=== PATIENT | female | born 1995 | race Caucasian/White ===

== ENCOUNTER 2017-02-20 20:53 | Emergency (ER) | payer BC, OTHER ==
[2017-02-20 21:10] VITALS: BP 129/87
[2017-02-20] MEDS ORDERED: Acetaminophen 325 MG Tab PO ONE (21:51)
--- NOTE | 2017-02-20 23:05 | EDM.PDOC ---
ED HPI GENERAL MEDICAL PROBLEM - General Chief Complaint: DIRECTOR RELIGIOUS EDUCATION Problem Stated Complaint: 14 WKS PG AND BLEEDING Time Seen by Provider: 02/20/17 22:00 Source of Information: Reports: Patient History Limitations: Reports: No Limitations - History of Present Illness INITIAL COMMENTS - FREE TEXT/NARRATIVE: 21-year-old female presents for evaluation and treatment of vaginal bleeding and pelvic pain and cramping. Patient is approximately 14 weeks . She is a . She has been seeing Dr. Guerin for DIRECTOR RELIGIOUS EDUCATION care. Last visit was about one month ago. She did talk to his RN this afternoon regarding the vaginal bleeding. States this began around 1500 today. She was instructed to come to the ER if the vaginal bleeding became worse. She does have an appointment with him tomorrow. She states that it became heavier for about 4 hours prior to arrival here. She did pass a few clots. She states that since coming to the ER it has lessened. She compares it to a heavy menstrual cycle. She has not been utilizing a pad but has been utilizing toilet tissue and has to change the tissue paper every 20 minutes. Reports current symptoms of vaginal bleeding, mild pelvic pain and cramping, nausea, headache, lightheadedness and dizziness. She denies any dysuria, hematuria, change in urine odor or color, fevers, vomiting or syncopal episodes. Patient reports her blood type is A+. Lower Abdomen Pain Score (Numeric/FACES): 4 - Related Data Allergies Allergy/AdvReac Type Severity Reaction Status Date / Time No Known Allergies Allergy Verified 02/20/17 21:10 Home Meds: Home Meds . [No Known Home Meds] 02/20/17 [History] Past Medical History - Past Health History Medical/Surgical History: Denies Medical/Surgical History Social & Family History - Tobacco Use Smoking Status *Q: Never Smoker - Caffeine Use Caffeine Use: Reports: None - Recreational Drug Use Recreational Drug Use: No ED ROS GENERAL - Review of Systems Review Of Systems: See Below Constitutional: Denies: Fever Cardiovascular: Reports: Lightheadedness GI/Abdominal: Reports: Abdominal Pain (lower), Nausea. Denies: Vomiting : Reports: Pain (mild pelvic pain and cramping), Other (vaginal bleeding, changing tolit tissue every 20 mintues) Neurological: Reports: Dizziness, Headache. Denies: Syncope ED EXAM - Physical Exam Exam: See Below Exam Limited By: No Limitations General Appearance: Alert, WD/WN, No Apparent Distress Respiratory/Chest: No Respiratory Distress, Lungs Clear, Normal Breath Sounds Cardiovascular: Normal Peripheral Pulses, Regular Rate, Rhythm, No Murmur GI/Abdominal: Normal Bowel Sounds, Soft, Non-Tender, Gravid Uterus (Female) Exam: Normal External Exam, Vaginal Bleeding. No: Cervical Dilatation Heart Tones: Present Neurological: Alert, Oriented, Normal Cognition Psychiatric: Normal Affect, Normal Mood Skin Exam: Warm, Dry, Normal Color Course - Vital Signs Last Recorded V/S: Last Vital Signs Temp 36.5 C 02/20/17 21:04 Pulse 91 02/20/17 21:04 Resp 16 02/20/17 21:04 BP 129/87 02/20/17 21:04 Pulse Ox 99 02/20/17 21:04 - Orders/Labs/Meds Orders: Active Orders 24 hr Category Date Time Status OB 1st Tri Sgl 1st Gest [US] Stat Exams 02/20/17 21:51 Ordered Labs: Laboratory Tests 02/20/17 Range/Units 22:10 Urine Color Lt yelllow (Yellow) Urine Appearance Clear (Clear) Urine pH 7.0 (5.0-8.0) Ur Specific [place] 1.015 (1.005-1.030) Urine Protein Negative (Negative) Urine Glucose (UA) Negative (Negative) Urine Ketones Negative (Negative) Urine Occult Blood 2+ H (Negative) Urine Nitrite Negative (Negative) Urine Bilirubin Negative (Negative) Urine Urobilinogen 0.2 (0.2-1.0) Ur Leukocyte Esterase Negative (Negative) Urine RBC 5-10 H (0-5) /hpf Urine WBC 0-5 (0-5) /hpf Ur Epithelial Cells 0-5 (0-5) /hpf Urine Bacteria Few (FEW) /hpf Urine Mucus Few (FEW) /hpf Meds: Medications Discontinued Medications Generic Name Dose Route Start Last Admin Trade Name Freq PRN Reason Stop Dose Admin Acetaminophen 650 mg 02/20/17 21:51 02/20/17 21:57 Tylenol PO 02/20/17 21:52 650 mg NOW ONE Administration - Radiology Interpretation Free Text/Narrative:: Fetus has normal activity with a heart rate of 141 beats per minute. Breech position of fetus. Posterior position seen to the placenta. Placenta is low- lying not unexpected for gestational age. Normal morphology is suggestive for age. Cervical length is 2.5 cm mild shortening/incompetence close followup recommended to ensure maintenance. the right ovary there are several small peripheral follicles noted. There is no free fluid in cul-de-sac. Impression is cervical shortening. CT Results Date: 02/20/17 - Re-Assessments/Exams Free Text/Narrative Re-Assessment/Exam: 02/20/17 23:27 UA shows 2+ blood. I reviewed the UA and Ultrasound results with the patient. I will Have her keep her appointment with OB tomorrow as planned. Discharge instructions this documented. Departure - Departure Time of Disposition: 23:28 Disposition: Home, Self-Care 01 Condition: fair Clinical Impression: Vaginal bleeding during , antepartum, Cervical shortening affecting - Discharge Information Instructions: Vaginal Bleeding During , First Trimester Referrals: John Paul Guerin MD [Primary Care Provider] - Forms: ED Department Discharge Additional Instructions: Continue with your current plan of care. Tylenol as needed for pain. Follow-up with your DIRECTOR RELIGIOUS EDUCATION provider tomorrow as planned. Nothing vaginal until instructed otherwise by ob. No vaginal intercourse, tampoons, etc. Please return to the ER should your symptoms change or worsen. - My Orders Last 24 Hours: My Active Orders 02/20/17 21:51 OB 1st Tri Sgl 1st Gest [US] Stat - Assessment/Plan Last 24 Hours: My Active Orders 02/20/17 21:51 OB 1st Tri Sgl 1st Gest [US] Stat
--- NOTE | 2017-02-21 09:36 | US ---
Limited obstetrical ultrasound: Multiple real-time images were obtained transabdominally. Comparison: Previous study of 12/26/16 is available. Dates: LMP: ? Current ultrasound: [facility] 08/14/17, gestational age 15 weeks 0 days Earlier ultrasound (12/26/16): [facility] 08/19/17, gestational age 14 weeks 2 days presentation: Breech Placenta: Posterior which is low-lying with no findings of placenta previa no abruption is seen Amniotic fluid: Within normal limits Maternal adnexa: Unremarkable Measurements: BPD: 2.89 cm - 15 weeks 2 days Head circumference: 10.25 cm - 14 weeks 6 days Abdominal circumference: 8.94 cm - 15 weeks 1 day Femur length: 1.50 cm - 14 weeks 3 days Estimated weight: 106 g (4 ounces), estimated weight at the 72nd percentile for age Heart rate: 140 bpm Cervical length: 2.54 cm Impression: 1. Single intrauterine fetus currently breech in presentation. Dates as noted above. 2. Low-lying placenta without previa or abruption. 3. Borderline cervical length measurement of 2.5 cm. Repeat study recommended in 6 weeks for anatomic survey. Cervical length can be reevaluated at that time as well as reevaluation of the low-lying placenta. Diagnostic code #3 I agree with preliminary report issued by [employer] (preliminary report dictated on 02/21/17, 12:13 AM Central Time)
== END 2017-02-20 23:35 | disposition home or self-care (01) ==
LOC: JD.ED 20:53
DX: O46.92 Antepartum hemorrhage, unspecified, second trimester (principal); O26.872 Cervical shortening, second trimester; Z3A.14 14 weeks gestation of pregnancy
CPT/HCPCS: 76801; 81001; 99284; A9270; 99283

== ENCOUNTER 2017-07-13 11:39 | Inpatient (IN) | payer BC, OTHER ==
[2017-07-13] MEDS ORDERED: Lactated Ringers 1,000 ML IV SCH (12:15)
[2017-07-13] MEDS ORDERED: Lactated Ringers 1,000 ML ONE (12:20)
[2017-07-13] MEDS ORDERED: Terbutaline 1 MG/ML SDV SUBCUT ONE (12:20)
[2017-07-13] MEDS ORDERED: Terbutaline 1 MG/ML SDV ONE (12:21)
[2017-07-13] MEDS ORDERED: Bupivacaine 0.5% 30 ML SDV ONE (12:42)
[2017-07-13] MEDS ORDERED: Citric Acid/Sodium Citrate Solution 30 ML Cup ONE (12:46)
[2017-07-13] MEDS ORDERED: Metoclopramide 10 MG/2 ML SDV ONE (12:46)
[2017-07-13] MEDS ORDERED: Citric Acid/Sodium Citrate Solution 30 ML Cup PO ONE (12:50)
[2017-07-13] MEDS ORDERED: ceFAZolin 2 GM in Premix Bag 1 BAG IV ONE (12:50)
[2017-07-13] MEDS ORDERED: Sodium Chloride 0.9% 10 ML Syringe FLUSH PRN (12:50)
[2017-07-13] MEDS ORDERED: Metoclopramide 10 MG/2 ML SDV IVPUSH ONE (12:50)
--- NOTE | 2017-07-13 13:02 | PCM.LDHP ---
L&D History of Present Illness - General Date of Service: 07/13/17 Admit Problem/Dx: Patient Status Order with Admit Dx/Problem 07/13/17 12:15 Patient Status [ADT] Routine Admission Diagnosis/Problem Admission Diagnosis/Problem 07/13/17 12:53 34-5/7 week intrauterine , labor with advanced cervical dilation, transverse lie-back up. Source of Information: Patient History Limitations: Reports: No Limitations - History of Present Illness Introduction:: Maria Guadalupe is a 21-year-old 1 para 0 white female who is evaluated in labor and delivery with complaint reports of contractions a started at 0800 hrs. this a.m. No inciting events noted. She is safia every 3 minutes. Her due date is 08/19/2017 places her at 34-5/7 weeks gestational age. She is evaluated with fibronectin and amnio sure along with group B strep at first. Digital exam then shows that she has a bulging bag shearer and cervix is 7-8 cm dilated baby feels like his in a transverse lie which is confirmed with a bedside ultrasound. Of some shows head to the right, back up and small parts down. She is prepped for emergency in section to perform during history 1 para 0. Patient's is dated by 6-2/7 week ultrasound done on 01/23/2017 place her due date at 08/19/2017. This is supported by 3 other ultrasounds. Last menstrual period was 09/27/2016 but was uncertain. Patient menarche at age 16 positive urine test was 01/04/2017. course patient was seen at 6 weeks and 2 days ultrasounds performed at that time she had normal course up to this point. Fundal height growth has been appropriate her weight gain has been from 152.6 pounds up to 190.8 pounds for approximately 38 pound weight gain. Her vital signs have an stable. During the course. She declined genetic testing. [place] posterior impression screens cross 2 on 03/28/2017. She lives in [facility] therefore has increased distance from the hospital. 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 Laboratory testing. She shows blood to be A+. Negative screen. laboratory tests showed hemoglobin 14.1. Platelets are 297,000. She is rubella immune. RPR is nonreactive. Hepatitis B surface and HIV asses were negative. GC and chlamydia assays were negative. Her second trimester testing showed hemoglobin 12.4. Platelets are 288,000. Group B strep screen was not performed until today. Allergies: none other than Kiwi which causes itching Medications: 1. Metronidazole course just finished in late June 2. Likely just when necessary for nausea new para 3. lens daily. 4. Colace when necessary for constipation Past medical history: Polycystic ovarian syndrome Past surgical history unremarkable Family history: One brother alive and well at age 26. Mom alive and well at age 46. Dad is at age 50 from suicide 1 year ago. Maternal grandmother is alive and well except for back problems at age 63. Paternal grandfather is alive and well with heart problems at age 67. Paternal grandmother uncertain of history but she is alive at age 70. Paternal grandfather secondary to heart problems at age 72. Social history: Review of systems patient is single. Significant other is Matt Perez. 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 She does not use any significant amounts of alcohol, drugs or tobacco. Review of systems: Skin: Negative Heart: Negative Breast history: No infectious symptoms or asthma. Breasts: Negative other than Printy changes GI: Negative : Changes associated with Musca skeletal: Negative Neurologic: Negative Physical exam: In general patient well-developed well-nourished anxious female in no acute distress. Last vital signs in clinic showed a blood pressure 11/01/57. Weight was 190.8. heart rate 148. Her initial weight was 152.6 height was 5 feet 5. Body mass index index then was 25. Skin is warm and dry without lesions. HEENT, neck back in a month's Lungs are clear with good breath sounds in all lung jurado. Cardiovascular exam shows regular rate and rhythm without murmurs. Breast exam is deferred at this time had been done at first visit to be normal. Rinses fundal height consistent with dates. Baby is transverse lie with head to the right. Cervix as above. It is 7-8 cm, 90% effaced, bulging bag shearer, anterior, very soft. Extremities/neurological exam grossly within normal aunts. - Related Data Allergies/Adverse Reactions: Allergies Allergy/AdvReac Type Severity Reaction Status Date / Time No Known Allergies Allergy Verified 02/20/17 21:10 Home Medications: Home Meds . [No Known Home Meds] 02/20/17 [History] Past Medical History - Past Health History Medical/Surgical History: Denies Medical/Surgical History Social & Family History - Tobacco Use Smoking Status *Q: Never Smoker - Caffeine Use Caffeine Use: Reports: None - Recreational Drug Use Recreational Drug Use: No H&P Review of Systems - Review of Systems: Review Of Systems: See Below L&D Exam - Exam Exam: See Below - Vital Signs Weight: 87.997 kg - Patient Data Lab Results Last 24 hrs: Laboratory Results - last 24 hr 07/13/17 Range/Units 12:15 Urine Color Yellow (Yellow) Urine Appearance Clear (Clear) Urine pH 7.0 (5.0-8.0) Ur Specific [place] 1.015 (1.005-1.030) Urine Protein Negative (Negative) Urine Glucose (UA) Negative (Negative) Urine Ketones Negative (Negative) Urine Occult Blood Negative (Negative) Urine Nitrite Negative (Negative) Urine Bilirubin Negative (Negative) Urine Urobilinogen 0.2 (0.2-1.0) Ur Leukocyte Esterase 1+ H (Negative) Problem List Initiated/Reviewed/Updated: Yes Orders Last 24hrs: Active Orders 24 hr Category Date Time Status Patient Status [ADT] Routine ADT 07/13/17 12:15 Active Non Stress Test [RC] PER UNIT ROUTINE Care 07/13/17 12:15 Active Vital Signs [RC] PER UNIT ROUTINE Care 07/13/17 12:15 Active AMNISURE RUPTURE MEMBRAN [BF] Stat Lab 07/13/17 12:15 Ordered CBC WITH AUTO DIFF [HEME] Stat Lab 07/13/17 12:45 Ordered FIBRONECTIN Stat Lab 07/13/17 12:41 Received GROUP B STREP BY PCR [MOLEC] Stat Lab 07/13/17 12:41 Received TYPE AND SCREEN [BBK] Stat Lab 07/13/17 12:46 Ordered UA W/MICROSCOPIC [URIN] Stat Lab 07/13/17 12:15 Results Lactated Ringers [Ringers, Lactated] 1,000 ml Med 07/13/17 12:15 Active IV ASDIRECTED Resuscitation Status Routine Resus Stat 07/13/17 12:15 Ordered Medication Orders Lactated Ringer's (Ringers, Lactated) 1,000 mls @ 500 mls/hr IV ASDIRECTED PRISCILLA Last Admin: 10/05/17 12:36 Dose: 500 mls/hr Assessment/Plan Comment:: Assessment: 1. 34-5/7 week intrauterine patency, active labor, advanced cervical dilation, bulging bag shearer with baby in transverse lie with back up and small parts down. 2. Group B strep status is not known but done today 3. Patient plans to nurse Plan: 1. Emergent primary lower uterine segment transverse section to defensive skin incision under regional block. procedure, risks, benefits, alternatives are discussed in detail the patient. She appears to understand, wishes to proceed and consent is signed. Prepped 2. DVT prophylaxis SCDs 3. Infection prophylaxis with Ancef 2 g IV preoperatively. 4. Routine preoperative labs 5. Reglan and Bicitra preoperatively.
[2017-07-13] MEDS ORDERED: Morphine PF 10 MG/10 ML SDV ONE (13:06)
[2017-07-13] MEDS ORDERED: Oxytocin/Lactated Ringers 10 UNIT/1,000 ML BAG IV SCH (13:15)
[2017-07-13] MEDS ORDERED: Oxytocin 10 Units/1 ML SDV ONE (13:44)
[2017-07-13] MEDS ORDERED: Ondansetron 4 MG/2 ML SDV ONE (13:44)
[2017-07-13] MEDS ORDERED: ceFAZolin 1 GM Vial ONE (13:44)
[2017-07-13] MEDS ORDERED: Meperidine PF 50 MG/ML Syringe ONE (13:56)
[2017-07-13] MEDS ORDERED: Ketorolac 30 MG/ML SDV ONE (14:04)
[2017-07-13] MEDS ORDERED: Ondansetron 4 MG/2 ML SDV IVPUSH PRN (14:56)
[2017-07-13] MEDS ORDERED: Meperidine PF 50 MG/ML Syringe IVPUSH PRN (14:56)
[2017-07-13] MEDS ORDERED: fentaNYL 100 MCG/2 ML SDV IVPUSH PRN (14:56)
[2017-07-13] MEDS ORDERED: diphenhydrAMINE 50 MG/ML SDV IVPUSH PRN ×3 (14:56→15:41)
[2017-07-13] MEDS ORDERED: Ondansetron 4 MG/2 ML SDV IV PRN (15:41)
[2017-07-13] MEDS ORDERED: ePHEDrine 50 MG/ML SDV IVPUSH PRN ×2 (15:41)
[2017-07-13] MEDS ORDERED: Lanolin 100% Cream 7 GM Tube TOP PRN ×2 (15:41)
[2017-07-13] MEDS ORDERED: Naloxone 0.4 MG/ML SDV IVPUSH PRN ×2 (15:41)
[2017-07-13] MEDS ORDERED: Dextrose 5%-Lactated Ringers 1,000 ML IV SCH ×2 (15:41)
[2017-07-13] MEDS: Prenatal Multivitamin with Calcium/Folic Acid/Iron Tab PO SCH (16:44)
--- NOTE | 2017-07-13 18:43 | PCM.OPNOTE ---
- General Post-Op/Procedure Note Date of Surgery/Procedure: 07/13/17 Operative Procedure(s): Primary lower uterine segment transverse section through Pfannenstiel skin incision Findings: Baby is in transverse position but descended to a gabriella breech presentation upon entering the uterus. Amniotic fluid was clear. Fallopian tubes, ovaries and uterus were otherwise normal. Pre Op Diagnosis: 34-5/7 weeks intrauterine , active labor, advanced cervical dilation, transverse lie with back up Post-Op Diagnosis: Same with delivery of a viable, jolly, male infant with Apgars of 2 and 9 at 1326 hrs. on 07/13/2017. Weight was 5 lbs. 11 oz. Anesthesia Technique: Spinal Other Anesthesia Type: Marcaine 0.5%-20 mL locally Primary Surgeon: John Paul Guerin Secondary Surgeon: Sekou Bautista Anesthesia Provider: Clark Castro Pathology: Placenta Fluid Replacement, Intraop: 600 Output, Urine Amount: 200 EBL in mLs: 500 Drain/Tube Comments:: Indwelling bladder catheter Complications: None Condition: Good Free Text/Narrative:: Intake & Output 07/13/17 07/13/17 07/13/17 06:59 14:59 22:59 Intake Total 1430 Output Total 700 Balance 730 Surgery duration: 24 minutes Procedure: Patient was transferred the room and placed in a sitting position. Spinal anesthesia was administered. After confirmation of adequate anesthesia patient was placed in a supine position with a wedge under her right side to facilitate left lateral positioning. The patient was prepped and draped in usual fashion after Lowery catheter was placed . The anesthetic was checked and found to be adequate. The Pfannenstiel skin incision was then made carried down to skin subcutaneous and fascial layers. The fascia was then undermined superiorly and inferiorly to allow for adequate operating room the recti muscles midline and preperitoneal fat was bluntly dissected. Peritoneal cavity was entered longitudinally. The vesicouterine peritoneum was then incised transversely and bladder flap was developed. Myometrium was incised transversely to the level of the amniotic sac. This incision was extended bilaterally in a blunt fashion. The amniotic sac was then ruptured resulting clear amniotic fluid. Baby was found to be in a gabriella breech presentation having descended from a transverse position, head on the right, back up. A hand is placed in the low uterine segment and the baby's breech was brought forth through the incision. The baby was completely delivered using fundal pressure and complete breech extraction technique in a routine fashion. The nose and mouth were bulb suctioned. Baby's cord was clamped x2 cut and baby was handed off to attending precision mechanical instrument maker Dr Alegria. Placenta was expressed after cord blood was obtained. Uterus was then exteriorized to allow for easier closure. The cervix was assessed and found to be dilated adequately to allow egress of blood. The uterus was closed in 2 layers. The first layer a running locked suture of 0 Monocryl, the second layer a running locked vertical mattress suture of 0 Monocryl. Eispwa-wh-fssui suture was placed at the left incision to control 1 bleeder. Hemostasis confirmed at this time. Sponge instrument needle counts are correct. The uterus was returned to the abdominal cavity and lateral gutters were cleared of blood. Once again sponge needle counts are correct. The anterior abdominal wall was closed with a #1 PDS suture from angle to angle. The subcutaneous area was found to be free of any bleeders. Skin was closed with a running subcuticular stitch of 3-0 Monocryl in a vertical mattress suture fashion using a Cristian needle. Prineo mesh/glue was then applied to further approximate the incision. It should be noted that patient received 2 g of Ancef preoperatively for infection prophylaxis and had Pitocin infused after delivery of the placenta to facilitate uterine contraction. She also had sequential compression stockings in place for DVT prophylaxis. Patient was discharged from the operating room in satisfactory condition.
[2017-07-13] MEDS: Simethicone 80 MG Tab.Chew PO SCH (18:52)
[2017-07-13] MEDS ORDERED: Ibuprofen 800 MG Tab PO SCH (20:00)
[2017-07-14] MEDS: Ketorolac 30 MG/ML SDV IVPUSH SCH ×2 (00:16→06:37)
[2017-07-14] MEDS: Simethicone 80 MG Tab.Chew PO SCH ×5 (06:38→22:30)
--- NOTE | 2017-07-14 08:05 | PCM48HPAN ---
Post Anesthesia Note - EVALUATION WITHIN 48HRS OF ANESTHETIC Vital Signs in Normal Range: Yes Patient Participated in Evaluation: Yes Respiratory Function Stable: Yes Airway Patent: Yes Cardiovascular Function Stable: Yes Hydration Status Stable: Yes Pain Control Satisfactory: Yes (On pain medications.) Nausea and Vomiting Control Satisfactory: Yes Mental Status Recovered: Yes - COMMENTS/OBSERVATIONS Free Text/Narrative:: Patient was up walking this morning. Denies: headache, back pain, numbness and/ or tingling in lower extremities. No apparent complication noted at this time.
--- NOTE | 2017-07-14 10:14 | PCM.SN ---
- Free Text/Narrative Note: Postoperative day one: Patient is doing very well. Pain is under good control. She has minimal lochia. Incision is dry and intact. Her appetite is good. She is nursing without problems. Patient is afebrile, vital signs stable. Lungs are clear with good breath sounds normal jurado. Cardiovascular exam shows regular rate and rhythm without murmurs. Abdomen is flat, soft, incision appears to be intact, dry and without hematoma, seroma or abscess. Extremities neurologic exam show trace edema otherwise unremarkable. CBC is within normal limits for the first postop day. Assessment: Operative day 1-doing well. Will increase diet, activity and discontinue SCDs when ambulating well. DC IV when tolerating fluids well.
[2017-07-14] MEDS: Ibuprofen 800 MG Tab PO SCH ×2 (12:25→20:47)
[2017-07-14] MEDS: Prenatal Multivitamin with Calcium/Folic Acid/Iron Tab PO SCH (13:05)
[2017-07-14] MEDS: Docusate Sodium 100 MG Cap PO PRN (15:43)
[2017-07-14] MEDS: Acetaminophen/oxyCODONE 325-5 MG Tab PO PRN ×2 (15:44→20:05)
[2017-07-15] MEDS: Acetaminophen/oxyCODONE 325-5 MG Tab PO PRN ×5 (02:19→19:55)
[2017-07-15] MEDS: Docusate Sodium 100 MG Cap PO PRN ×3 (03:47→19:54)
[2017-07-15] MEDS: Ibuprofen 800 MG Tab PO SCH ×3 (03:47→19:54)
--- NOTE | 2017-07-15 07:14 | PCM.PNPP ---
- General Info Date of Service: 07/15/17 Functional Status: Reports: Pain Controlled, Tolerating Diet, Ambulating, Urinating - Review of Systems General: Reports: No Symptoms Pulmonary: Reports: No Symptoms Cardiovascular: Reports: No Symptoms Gastrointestinal: Reports: No Symptoms Genitourinary: Reports: No Symptoms Musculoskeletal: Reports: No Symptoms - Patient Data Vital Signs - Most Recent: Last Vital Signs Temp 36.6 C 07/15/17 03:49 Pulse 78 07/15/17 03:49 Resp 14 07/15/17 03:49 BP 101/55 L 07/15/17 03:49 Pulse Ox 94 L 07/15/17 03:49 Weight - Most Recent: 87.997 kg I&O - Last 24 Hours: Intake & Output 07/14/17 07/15/17 07/15/17 22:59 06:59 14:59 Intake Total 300 1500 Output Total 1150 Balance -850 1500 Lab Results - Last 24 Hours: Laboratory Results - last 24 hr 07/13/17 Range/Units 12:41 Group B Strep (PCR) Negative (NEGATIVE) Med Orders - Current: Current Medications Diphenhydramine HCl (Benadryl) 25 mg IVPUSH Q6H PRN PRN Reason: Itching or Nausea Docusate Sodium (Colace) 100 mg PO Q12H PRN PRN Reason: Constipation Last Admin: 07/15/17 03:47 Dose: 100 mg Emollient Ointment (Lansinoh Hpa) 0 gm TOP ASDIRECTED PRN PRN Reason: Sore Nipples Ephedrine Sulfate (Ephedrine Sulfate) 5 mg IVPUSH SEECOMMENT PRN PRN Reason: Other Ibuprofen (Motrin) 800 mg PO Q8H [facility] Last Admin: 07/15/17 03:47 Dose: 800 mg Naloxone HCl (Narcan) 0.1 mg IVPUSH SEECOMMENT PRN PRN Reason: Respiratory Depression Ondansetron HCl (Zofran) 4 mg IV Q4H PRN PRN Reason: Nausea/Vomiting Last Admin: 07/13/17 16:58 Dose: 4 mg Oxycodone/Acetaminophen (Percocet 325-5 Mg) 2 tab PO Q4H PRN PRN Reason: Pain (moderate 4-6) Last Admin: 07/15/17 07:01 Dose: 1 tab Prenat Multivit/[employer] Specialist/Iron/Folic Ac ( Plus Iron) 1 each PO DAILY [facility] Last Admin: 07/14/17 13:05 Dose: Not Given Simethicone (Simethicone) 80 mg PO PCBED [facility] Last Admin: 07/14/17 22:30 Dose: 80 mg Discontinued Medications Bupivacaine HCl (Marcaine 0.5%) Confirm Administered Dose 30 ml .ROUTE .[facility] ONE Stop: 07/13/17 12:43 Cefazolin Sodium (Ancef) Confirm Administered Dose 2 gm .ROUTE .[facility] ONE Stop: 07/13/17 13:45 Citric Acid/Sodium Citrate (Bicitra Solution) Confirm Administered Dose 30 ml .ROUTE .[facility] ONE Stop: 07/13/17 12:47 Last Admin: 07/13/17 15:33 Dose: Not Given Citric Acid/Sodium Citrate (Bicitra Solution) 30 ml PO ONETIME ONE Stop: 07/13/17 12:51 Last Admin: 07/13/17 12:51 Dose: 30 ml Diphenhydramine HCl (Benadryl) 25 mg IVPUSH Q6H PRN PRN Reason: Pruritis Fentanyl (Sublimaze) 50 mcg IVPUSH Q5M PRN PRN Reason: Pain Lactated Ringer's (Ringers, Lactated) 1,000 mls @ 500 mls/hr IV ASDIRECTED [facility] Last Admin: 07/13/17 12:36 Dose: 500 mls/hr Lactated Ringer's (Ringers, Lactated) Confirm Administered Dose 1,000 mls @ as directed .ROUTE .[facility] ONE Stop: 07/13/17 12:21 Last Admin: 07/13/17 13:15 Dose: Not Given Cefazolin Sodium/Dextrose 2 gm (/ Premix) 50 mls @ 100 mls/hr IV ONETIME ONE Stop: 07/13/17 13:19 Last Admin: 07/13/17 16:51 Dose: Not Given Oxytocin/Lactated Ringer's (Pitocin In Lr 10 Units/1,000 Ml) 10 unit in 1,000 mls @ 500 mls/hr IV TITRATE [facility] Dextrose/Lactated Ringer's (Dextrose 5%-Lactated Ringers) 1,000 mls @ 125 mls/ hr IV ASDIRECTED [facility] Stop: 07/13/17 23:40 Last Admin: 07/13/17 17:00 Dose: 125 mls/hr Ibuprofen (Motrin) 800 mg PO Q8H [facility] Last Admin: 07/14/17 07:24 Dose: Not Given Ketorolac Tromethamine (Toradol) Confirm Administered Dose 30 mg .ROUTE .[facility]- [facility] ONE Stop: 07/13/17 14:05 Ketorolac Tromethamine (Toradol) 30 mg IVPUSH Q6H [facility] Stop: 07/14/17 06:01 Last Admin: 07/14/17 06:37 Dose: 30 mg Meperidine HCl (Demerol) Confirm Administered Dose 50 mg .ROUTE .[facility] ONE Stop: 07/13/17 13:57 Meperidine HCl (Demerol) 12.5 mg IVPUSH ONETIME PRN PRN Reason: Shivering Metoclopramide HCl (Reglan) Confirm Administered Dose 10 mg .ROUTE .[facility] ONE Stop: 07/13/17 12:47 Last Admin: 07/13/17 15:33 Dose: Not Given Metoclopramide HCl (Reglan) 10 mg IVPUSH ONETIME ONE Stop: 07/13/17 12:51 Last Admin: 07/13/17 12:50 Dose: 10 mg Morphine Sulfate (Duramorph Pf) Confirm Administered Dose 10 mg .ROUTE .[facility]K-MED ONE Stop: 07/13/17 13:07 Ondansetron HCl (Zofran) Confirm Administered Dose 4 mg .ROUTE .STK-MED ONE Stop: 07/13/17 13:45 Ondansetron HCl (Zofran) 4 mg IVPUSH ONETIME PRN PRN Reason: Nausea/Vomiting Oxytocin (Pitocin) Confirm Administered Dose 20 unit .ROUTE .STK-MED ONE Stop: 07/13/17 13:45 Sodium Chloride (Saline Flush) 10 ml FLUSH ASDIRECTED PRN PRN Reason: Keep Vein Open Terbutaline Sulfate (Brethine) 0.25 mg SUBCUT ONETIME ONE Stop: 07/13/17 12:21 Last Admin: 07/13/17 12:35 Dose: 0.25 mg Terbutaline Sulfate (Brethine) Confirm Administered Dose 1 mg .ROUTE .STK-MED ONE Stop: 07/13/17 12:22 Last Admin: 07/13/17 15:33 Dose: Not Given - Interaction Disposition, : in Room with Family Interaction: Holding Infant Feeding: Attempted ; Nursed Fair/Poor Support Person: Mother, Significant Other - Recovery Exam Fundal Tone: Firm Fundal Level: 2 Fingerbreadths Below Umbilicus Fundal Placement: Midline Lochia Amount: Scant Lochia Color: Rubra/Red Perineum Description: Intact, Minimal Bruising/Swelling Episiotomy/Laceration: None Bladder Status: Voiding Urinary Elimination: Voided - Exam General: Alert, Oriented, Cooperative Lungs: Clear to Auscultation, Normal Respiratory Effort Cardiovascular: Regular Rate, Regular Rhythm GI/Abdominal Exam: Soft, Non-Tender Extremities: Normal Inspection Skin: Warm, Dry, Intact Wound/Incisions: Healing Well, No Drainage - Problem List & Annotations (1) 34 weeks gestation of SNOMED Code(s): 96490975 Code(s): Z3A.34 - 34 WEEKS GESTATION OF Status: Acute Current Visit: Yes (2) labor SNOMED Code(s): 1047806 Code(s): O60.00 - LABOR WITHOUT DELIVERY, UNSPECIFIED TRIMESTER Status: Acute Current Visit: Yes Qualifiers: labor trimester: third trimester labor delivery status: with delivery in third trimester Fetus number: single or unspecified fetus Qualified Code(s): O60.14X0 - labor third trimester with delivery third trimester, not applicable or unspecified (3) Transverse lie of fetus SNOMED Code(s): 45917087 Code(s): O32.2XX0 - MATERNAL CARE FOR TRANSVERSE AND OBLIQUE LIE, UNSP Status: Acute Current Visit: Yes (4) S/P SNOMED Code(s): 825951660 Code(s): Z98.891 - HISTORY OF UTERINE SCAR FROM PREVIOUS SURGERY Status: Acute Current Visit: Yes - Problem List Review Problem List Initiated/Reviewed/Updated: Yes - Assessment Assessment:: 21 y/o G1 now P0101 POD#2 from PLTCS at 34 5/7 wks after PTL and transverse lie - Plan Plan:: S/p PTLCS * Routine cares * Encourage breast feeding * Discharge home tomorrow
[2017-07-15] MEDS: Prenatal Multivitamin with Calcium/Folic Acid/Iron Tab PO SCH (09:49)
[2017-07-15] MEDS: Simethicone 80 MG Tab.Chew PO SCH ×4 (09:50→23:24)
[2017-07-15] MEDS ORDERED: Magnesium Hydroxide 400 MG/5 ML Susp 30 ML Cup PO PRN (19:44)
[2017-07-16] MEDS: Ibuprofen 800 MG Tab PO SCH ×2 (04:08→11:07)
[2017-07-16] MEDS ORDERED: Bisacodyl 10 MG Supp RECTAL PRN (04:38)
--- NOTE | 2017-07-16 05:37 | PCM.PNPP ---
- General Info Date of Service: 07/16/17 Functional Status: Reports: Pain Controlled, Tolerating Diet, Ambulating, Urinating - Review of Systems General: Reports: No Symptoms Pulmonary: Reports: No Symptoms Cardiovascular: Reports: No Symptoms Gastrointestinal: Reports: Constipation Genitourinary: Reports: No Symptoms Musculoskeletal: Reports: No Symptoms - Patient Data Vital Signs - Most Recent: Last Vital Signs Temp 36.7 C 07/16/17 04:09 Pulse 81 07/16/17 04:09 Resp 14 07/16/17 04:09 BP 101/63 07/16/17 04:09 Pulse Ox 98 07/16/17 04:09 Weight - Most Recent: 87.997 kg I&O - Last 24 Hours: Intake & Output 07/15/17 07/15/17 07/16/17 14:59 22:59 06:59 Intake Total 500 240 Balance 500 240 Med Orders - Current: Current Medications Bisacodyl (Dulcolax) 10 mg RECTAL DAILY PRN PRN Reason: Constipation Diphenhydramine HCl (Benadryl) 25 mg IVPUSH Q6H PRN PRN Reason: Itching or Nausea Docusate Sodium (Colace) 100 mg PO Q12H PRN PRN Reason: Constipation Last Admin: 07/15/17 19:54 Dose: 100 mg Emollient Ointment (Lansinoh Hpa) 0 gm TOP ASDIRECTED PRN PRN Reason: Sore Nipples Last Admin: 07/15/17 17:10 Dose: 1 tube Ephedrine Sulfate (Ephedrine Sulfate) 5 mg IVPUSH SEECOMMENT PRN PRN Reason: Other Ibuprofen (Motrin) 800 mg PO Q8H [facility] Last Admin: 07/16/17 04:08 Dose: 800 mg Magnesium Hydroxide (Milk Of Magnesia) 30 ml PO Q6H PRN PRN Reason: Constipation Last Admin: 07/15/17 19:53 Dose: 30 ml Naloxone HCl (Narcan) 0.1 mg IVPUSH SEECOMMENT PRN PRN Reason: Respiratory Depression Ondansetron HCl (Zofran) 4 mg IV Q4H PRN PRN Reason: Nausea/Vomiting Last Admin: 07/13/17 16:58 Dose: 4 mg Oxycodone/Acetaminophen (Percocet 325-5 Mg) 2 tab PO Q4H PRN PRN Reason: Pain (moderate 4-6) Last Admin: 07/15/17 19:55 Dose: 1 tab Prenat Multivit/[place]/Iron/Folic Ac ( Plus Iron) 1 each PO DAILY [facility] Last Admin: 07/15/17 09:49 Dose: 1 each Simethicone (Simethicone) 80 mg PO PCBED [facility] Last Admin: 07/15/17 23:24 Dose: 80 mg Discontinued Medications Bupivacaine HCl (Marcaine 0.5%) Confirm Administered Dose 30 ml .ROUTE .[facility] ONE Stop: 07/13/17 12:43 Cefazolin Sodium (Ancef) Confirm Administered Dose 2 gm .ROUTE .[facility] ONE Stop: 07/13/17 13:45 Citric Acid/Sodium Citrate (Bicitra Solution) Confirm Administered Dose 30 ml .ROUTE .[facility] ONE Stop: 07/13/17 12:47 Last Admin: 07/13/17 15:33 Dose: Not Given Citric Acid/Sodium Citrate (Bicitra Solution) 30 ml PO ONETIME ONE Stop: 07/13/17 12:51 Last Admin: 07/13/17 12:51 Dose: 30 ml Diphenhydramine HCl (Benadryl) 25 mg IVPUSH Q6H PRN PRN Reason: Pruritis Fentanyl (Sublimaze) 50 mcg IVPUSH Q5M PRN PRN Reason: Pain Lactated Ringer's (Ringers, Lactated) 1,000 mls @ 500 mls/hr IV ASDIRECTED [facility] Last Admin: 07/13/17 12:36 Dose: 500 mls/hr Lactated Ringer's (Ringers, Lactated) Confirm Administered Dose 1,000 mls @ as directed .ROUTE .[facility] ONE Stop: 07/13/17 12:21 Last Admin: 07/13/17 13:15 Dose: Not Given Cefazolin Sodium/Dextrose 2 gm (/ Premix) 50 mls @ 100 mls/hr IV ONETIME ONE Stop: 07/13/17 13:19 Last Admin: 07/13/17 16:51 Dose: Not Given Oxytocin/Lactated Ringer's (Pitocin In Lr 10 Units/1,000 Ml) 10 unit in 1,000 mls @ 500 mls/hr IV TITRATE [facility] Dextrose/Lactated Ringer's (Dextrose 5%-Lactated Ringers) 1,000 mls @ 125 mls/ hr IV ASDIRECTED [facility] Stop: 07/13/17 23:40 Last Admin: 07/13/17 17:00 Dose: 125 mls/hr Ibuprofen (Motrin) 800 mg PO Q8H [facility] Last Admin: 07/14/17 07:24 Dose: Not Given Ketorolac Tromethamine (Toradol) Confirm Administered Dose 30 mg .ROUTE .STK- MED ONE Stop: 07/13/17 14:05 Ketorolac Tromethamine (Toradol) 30 mg IVPUSH Q6H [facility] Stop: 07/14/17 06:01 Last Admin: 07/14/17 06:37 Dose: 30 mg Meperidine HCl (Demerol) Confirm Administered Dose 50 mg .ROUTE .STK-MED ONE Stop: 07/13/17 13:57 Meperidine HCl (Demerol) 12.5 mg IVPUSH ONETIME PRN PRN Reason: Shivering Metoclopramide HCl (Reglan) Confirm Administered Dose 10 mg .ROUTE .STK-MED ONE Stop: 07/13/17 12:47 Last Admin: 07/13/17 15:33 Dose: Not Given Metoclopramide HCl (Reglan) 10 mg IVPUSH ONETIME ONE Stop: 07/13/17 12:51 Last Admin: 07/13/17 12:50 Dose: 10 mg Morphine Sulfate (Duramorph Pf) Confirm Administered Dose 10 mg .ROUTE .STK-MED ONE Stop: 07/13/17 13:07 Ondansetron HCl (Zofran) Confirm Administered Dose 4 mg .ROUTE .STK-MED ONE Stop: 07/13/17 13:45 Ondansetron HCl (Zofran) 4 mg IVPUSH ONETIME PRN PRN Reason: Nausea/Vomiting Oxytocin (Pitocin) Confirm Administered Dose 20 unit .ROUTE .STK-MED ONE Stop: 07/13/17 13:45 Sodium Chloride (Saline Flush) 10 ml FLUSH ASDIRECTED PRN PRN Reason: Keep Vein Open Terbutaline Sulfate (Brethine) 0.25 mg SUBCUT ONETIME ONE Stop: 07/13/17 12:21 Last Admin: 07/13/17 12:35 Dose: 0.25 mg Terbutaline Sulfate (Brethine) Confirm Administered Dose 1 mg .ROUTE .STK-MED ONE Stop: 07/13/17 12:22 Last Admin: 07/13/17 15:33 Dose: Not Given - Interaction Infant Disposition, : [place] in Room with Family Interaction: Holding Feeding: Attempted ; Nursed Fair/Poor Support Person: Mother, Significant Other - Recovery Exam Fundal Tone: Firm Fundal Level: 2 Fingerbreadths Below Umbilicus Fundal Placement: Midline Lochia Amount: Small Lochia Color: Rubra/Red Perineum Description: Intact, Minimal Bruising/Swelling Episiotomy/Laceration: None Bladder Status: Voiding Urinary Elimination: Voided - Exam General: Alert, Oriented, Cooperative Lungs: Clear to Auscultation, Normal Respiratory Effort Cardiovascular: Regular Rate, Regular Rhythm GI/Abdominal Exam: Soft, Non-Tender Extremities: Normal Inspection Skin: Warm, Dry, Intact Wound/Incisions: Healing Well, No Drainage - Problem List & Annotations (1) 34 weeks gestation of SNOMED Code(s): 95268465 Code(s): Z3A.34 - 34 WEEKS GESTATION OF Status: Acute Current Visit: Yes (2) labor SNOMED Code(s): 5777379 Code(s): O60.00 - LABOR WITHOUT DELIVERY, UNSPECIFIED TRIMESTER Status: Acute Current Visit: Yes Qualifiers: labor trimester: third trimester labor delivery status: with delivery in third trimester Fetus number: single or unspecified fetus Qualified Code(s): O60.14X0 - labor third trimester with delivery third trimester, not applicable or unspecified (3) Transverse lie of fetus SNOMED Code(s): 21110738 Code(s): O32.2XX0 - MATERNAL CARE FOR TRANSVERSE AND OBLIQUE LIE, UNSP Status: Acute Current Visit: Yes Qualifiers: Fetus number: single or unspecified fetus Qualified Code(s): O32.2XX0 - Maternal care for transverse and oblique lie, not applicable or unspecified (4) S/P SNOMED Code(s): 265626272 Code(s): Z98.891 - HISTORY OF UTERINE SCAR FROM PREVIOUS SURGERY Status: Acute Current Visit: Yes - Problem List Review Problem List Initiated/Reviewed/Updated: Yes - My Orders Last 24 Hours: My Active Orders 07/15/17 19:44 Magnesium Hydroxide [Milk of Magnesia] 30 ml PO Q6H PRN 07/16/17 04:38 Bisacodyl [Dulcolax] 10 mg RECTAL DAILY PRN 07/16/17 05:36 Ready for Discharge [RC] PER UNIT ROUTINE - Assessment Assessment:: 21 y/o G1 now P0101 POD#3 from PLTCS at 34 5/7 wks after PTL and transverse lie - Plan Plan:: S/p PTLCS * Routine cares * Encourage breast feeding * Discharge home today
--- NOTE | 2017-07-16 05:37 | PCM.DCSUM1 ---
Discharge Summary - Discharge Data Discharge Date: 07/16/17 Discharge Disposition: Home, Self-Care 01 Condition: Good - Discharge Diagnosis/Problem(s) (1) 34 weeks gestation of SNOMED Code(s): 87648162 ICD Code: Z3A.34 - 34 WEEKS GESTATION OF Status: Acute Current Visit: Yes (2) labor SNOMED Code(s): 6679060 ICD Code: O60.00 - LABOR WITHOUT DELIVERY, UNSPECIFIED TRIMESTER Status: Acute Current Visit: Yes Qualifiers: labor trimester: third trimester labor delivery status: with delivery in third trimester Fetus number: single or unspecified fetus Qualified Code(s): O60.14X0 - labor third trimester with delivery third trimester, not applicable or unspecified (3) Transverse lie of fetus SNOMED Code(s): 21009640 ICD Code: O32.2XX0 - MATERNAL CARE FOR TRANSVERSE AND OBLIQUE LIE, UNSP Status: Acute Current Visit: Yes Qualifiers: Fetus number: single or unspecified fetus Qualified Code(s): O32.2XX0 - Maternal care for transverse and oblique lie, not applicable or unspecified (4) S/P SNOMED Code(s): 297337594 ICD Code: Z98.891 - HISTORY OF UTERINE SCAR FROM PREVIOUS SURGERY Status: Acute Current Visit: Yes - Patient Summary/Data Operative Procedure(s) Performed: Primary lower uterine segment transverse section through Pfannenstiel skin incision Complications: None Consults: None Recommended Follow-up Testing/Procedures: Follow up in [address] Guerin [facility] Hospital Course: 21 y/o presented at 34 5/7 wks gestation with contractions and found to be 8 cm and with transverse lie. Taken to OR for urgent PLTCS. See operative note for full details. did well and was discharged home on POD#3 - Patient Instructions Diet: Regular Diet as Tolerated Activity: No Lifting Over 20 Pounds Activity, Other: Pelvic rest for 6 weeks Driving: Do Not Drive (While taking narcotics ) Showering/Bathing: May Shower, No Tub Bathing/Swimming Wound/Incision Care: Keep Operative Site/Wound Site Clean and Dry Notify Provider of: Fever, Increased Pain, Swelling and Redness, Drainage, Nausea and/or Vomiting - Discharge Plan Prescriptions/Med Rec: Acetaminophen/oxyCODONE [Percocet 325-5 MG] 2 tab PO Q4H PRN #20 tablet PRN Reason: Pain Home Medications: Home Meds Acetaminophen/oxyCODONE [Percocet 325-5 MG] 2 tab PO Q4H PRN #20 tablet [Rx] Docusate Sodium [Colace] 100 mg PO Q12H PRN cap 07/15/17 [Rx] Vit with Ca/FA/Iron [ Plus Iron] 1 each PO DAILY tablet [Rx] Referrals: John Paul Guerin MD [Primary Care Provider] - (2 weeks for check ) - Discharge Summary/Plan Comment DC Time >30 min.: No - Patient Data Vitals - Most Recent: Last Vital Signs Temp 36.7 C 07/16/17 04:09 Pulse 81 07/16/17 04:09 Resp 14 07/16/17 04:09 BP 101/63 07/16/17 04:09 Pulse Ox 98 07/16/17 04:09 Weight - Most Recent: 87.997 kg I&O - Last 24 hours: Intake & Output 07/15/17 07/15/17 07/16/17 14:59 22:59 06:59 Intake Total 500 240 Balance 500 240 Med Orders - Current: Current Medications Bisacodyl (Dulcolax) 10 mg RECTAL DAILY PRN PRN Reason: Constipation Diphenhydramine HCl (Benadryl) 25 mg IVPUSH Q6H PRN PRN Reason: Itching or Nausea Docusate Sodium (Colace) 100 mg PO Q12H PRN PRN Reason: Constipation Last Admin: 07/15/17 19:54 Dose: 100 mg Emollient Ointment (Lansinoh Hpa) 0 gm TOP ASDIRECTED PRN PRN Reason: Sore Nipples Last Admin: 07/15/17 17:10 Dose: 1 tube Ephedrine Sulfate (Ephedrine Sulfate) 5 mg IVPUSH SEECOMMENT PRN PRN Reason: Other Ibuprofen (Motrin) 800 mg PO Q8H [facility] Last Admin: 07/16/17 04:08 Dose: 800 mg Magnesium Hydroxide (Milk Of Magnesia) 30 ml PO Q6H PRN PRN Reason: Constipation Last Admin: 07/15/17 19:53 Dose: 30 ml Naloxone HCl (Narcan) 0.1 mg IVPUSH SEECOMMENT PRN PRN Reason: Respiratory Depression Ondansetron HCl (Zofran) 4 mg IV Q4H PRN PRN Reason: Nausea/Vomiting Last Admin: 07/13/17 16:58 Dose: 4 mg Oxycodone/Acetaminophen (Percocet 325-5 Mg) 2 tab PO Q4H PRN PRN Reason: Pain (moderate 4-6) Last Admin: 07/15/17 19:55 Dose: 1 tab Prenat Multivit/[place]/Iron/Folic Ac ( Plus Iron) 1 each PO DAILY [facility] Last Admin: 07/15/17 09:49 Dose: 1 each Simethicone (Simethicone) 80 mg PO PCBED [facility] Last Admin: 07/15/17 23:24 Dose: 80 mg Discontinued Medications Bupivacaine HCl (Marcaine 0.5%) Confirm Administered Dose 30 ml .ROUTE .STK-MED ONE Stop: 07/13/17 12:43 Cefazolin Sodium (Ancef) Confirm Administered Dose 2 gm .ROUTE .STK-MED ONE Stop: 07/13/17 13:45 Citric Acid/Sodium Citrate (Bicitra Solution) Confirm Administered Dose 30 ml .ROUTE .STK-MED ONE Stop: 07/13/17 12:47 Last Admin: 07/13/17 15:33 Dose: Not Given Citric Acid/Sodium Citrate (Bicitra Solution) 30 ml PO ONETIME ONE Stop: 07/13/17 12:51 Last Admin: 07/13/17 12:51 Dose: 30 ml Diphenhydramine HCl (Benadryl) 25 mg IVPUSH Q6H PRN PRN Reason: Pruritis Fentanyl (Sublimaze) 50 mcg IVPUSH Q5M PRN PRN Reason: Pain Lactated Ringer's (Ringers, Lactated) 1,000 mls @ 500 mls/hr IV ASDIRECTED [facility] Last Admin: 07/13/17 12:36 Dose: 500 mls/hr Lactated Ringer's (Ringers, Lactated) Confirm Administered Dose 1,000 mls @ as directed .ROUTE .STK-MED ONE Stop: 07/13/17 12:21 Last Admin: 07/13/17 13:15 Dose: Not Given Cefazolin Sodium/Dextrose 2 gm (/ Premix) 50 mls @ 100 mls/hr IV ONETIME ONE Stop: 07/13/17 13:19 Last Admin: 07/13/17 16:51 Dose: Not Given Oxytocin/Lactated Ringer's (Pitocin In Lr 10 Units/1,000 Ml) 10 unit in 1,000 mls @ 500 mls/hr IV TITRATE [facility] Dextrose/Lactated Ringer's (Dextrose 5%-Lactated Ringers) 1,000 mls @ 125 mls/ hr IV ASDIRECTED [facility] Stop: 07/13/17 23:40 Last Admin: 07/13/17 17:00 Dose: 125 mls/hr Ibuprofen (Motrin) 800 mg PO Q8H [facility] Last Admin: 07/14/17 07:24 Dose: Not Given Ketorolac Tromethamine (Toradol) Confirm Administered Dose 30 mg .ROUTE .STK- MED ONE Stop: 07/13/17 14:05 Ketorolac Tromethamine (Toradol) 30 mg IVPUSH Q6H [facility] Stop: 07/14/17 06:01 Last Admin: 07/14/17 06:37 Dose: 30 mg Meperidine HCl (Demerol) Confirm Administered Dose 50 mg .ROUTE .STK-MED ONE Stop: 07/13/17 13:57 Meperidine HCl (Demerol) 12.5 mg IVPUSH ONETIME PRN PRN Reason: Shivering Metoclopramide HCl (Reglan) Confirm Administered Dose 10 mg .ROUTE .STK-MED ONE Stop: 07/13/17 12:47 Last Admin: 07/13/17 15:33 Dose: Not Given Metoclopramide HCl (Reglan) 10 mg IVPUSH ONETIME ONE Stop: 07/13/17 12:51 Last Admin: 07/13/17 12:50 Dose: 10 mg Morphine Sulfate (Duramorph Pf) Confirm Administered Dose 10 mg .ROUTE .STK-MED ONE Stop: 07/13/17 13:07 Ondansetron HCl (Zofran) Confirm Administered Dose 4 mg .ROUTE .STK-MED ONE Stop: 07/13/17 13:45 Ondansetron HCl (Zofran) 4 mg IVPUSH ONETIME PRN PRN Reason: Nausea/Vomiting Oxytocin (Pitocin) Confirm Administered Dose 20 unit .ROUTE .STK-MED ONE Stop: 07/13/17 13:45 Sodium Chloride (Saline Flush) 10 ml FLUSH ASDIRECTED PRN PRN Reason: Keep Vein Open Terbutaline Sulfate (Brethine) 0.25 mg SUBCUT ONETIME ONE Stop: 07/13/17 12:21 Last Admin: 07/13/17 12:35 Dose: 0.25 mg Terbutaline Sulfate (Brethine) Confirm Administered Dose 1 mg .ROUTE .STK-MED ONE Stop: 07/13/17 12:22 Last Admin: 07/13/17 15:33 Dose: Not Given *Q Meaningful Use (DIS) - VTE *Q VTE Criteria *Q: - Stroke *Q Stroke Criteria *Q: - AMI *Q AMI Criteria *Q:
[2017-07-16] MEDS: Acetaminophen/oxyCODONE 325-5 MG Tab PO PRN ×2 (05:59→15:02)
[2017-07-16] MEDS: Prenatal Multivitamin with Calcium/Folic Acid/Iron Tab PO SCH (11:06)
[2017-07-16] MEDS: Simethicone 80 MG Tab.Chew PO SCH ×2 (11:06→16:54)
== END 2017-07-16 16:30 | disposition home or self-care (01) | DRG 540 ==
LOC: JD.OBCHECK 11:39 → JD.OB 11:40
PROVIDERS: ADMIT Obstetrics & Gynecology; ATTEND Obstetrics & Gynecology
PROC: 10D00Z1 Extraction of Products of Conception, Low, Open Approach (ICD-10-PCS; principal; 2017-07-13)
DX: O60.14X0 Preterm labor third trimester with preterm delivery third trimester, not applicable or unspecified (principal); O32.2XX0 Maternal care for transverse and oblique lie, not applicable or unspecified; Z3A.35 35 weeks gestation of pregnancy; Z37.0 Single live birth
CPT/HCPCS: 01961; 36415; 59025; 81001; 82731; 84112; 85025; 86850; 86900; 86901; 87653; A9270-GY; J0690; J1885; J2175; J2270; J2405; J2590; J2765; J3010; J3105; J7042; J7120

== ENCOUNTER → 2019-09-20 | Day surgery (SDC) | payer BC, OTHER ==
[~2019-09-20] MED LIST: Acetaminophen 325 MG Tab PO ONE; Bupivacaine 0.5% 30 ML SDV ONE; Dexamethasone 4 MG/ML 5 ML MDV ONE; HYDROmorphone 0.5 MG/0.5 ML Syringe IVPUSH PRN; HYDROmorphone 0.5 MG/0.5 ML Syringe ONE; Ketorolac 30 MG/ML SDV ONE; Lactated Ringers 1,000 ML IV SCH; Lactated Ringers 1,000 ML ONE; Lidocaine 1% 6 ML ONE; Lidocaine 1%/Sod Bicarbonate in NS 8.4% 1 ML Syringe IDERM PRN; Midazolam 1 MG/ML 2 ML SDV ONE; Ondansetron 4 MG Tab.DIS PO ONE; Ondansetron 4 MG/2 ML SDV ONE; Propofol 200 MG/20 ML SDV ONE; Rocuronium 50 MG/5 ML Vial ONE; Sodium Chloride 0.9% 10 ML Syringe FLUSH PRN; ceFAZolin 1 GM Vial ONE; fentaNYL 100 MCG/2 ML SDV IVPUSH PRN; fentaNYL 250 MCG/5 ML SDV ONE
--- NOTE | 2019-09-20 07:53 | PCM.PREANE ---
Preanesthetic Assessment - Anesthesia/Transfusion/Family Hx Anesthesia History: Prior Anesthesia Without Reaction Family History of Anesthesia Reaction: No Transfusion History: No Prior Transfusion(s) Type of Transfusion Reactions: Reports: Unknown Intubation History: Unknown - Review of Systems General: No Symptoms Pulmonary: No Symptoms (Former smoker: quit smokinig 6 months ago. (socially smoked prior to)) Cardiovascular: No Symptoms Gastrointestinal: No Symptoms (GERD- treated with tums) Neurological: No Symptoms Other: Reports: Depression, Anxiety - Physical Assessment NPO Status Date: 09/19/19 NPO Status Time: 22:00 Vital Signs: Last Vital Signs Temp 36.3 C 09/20/19 07:15 Pulse 95 09/20/19 07:15 Resp 16 09/20/19 07:15 BP 116/74 09/20/19 07:15 Pulse Ox 99 09/20/19 07:15 Height: 1.65 m Weight: 70.307 kg ASA Class: 2 Mental Status: Alert & Oriented x3 Airway Class: Mallampati = 2 Dentition: Reports: Normal Dentition, Caries Thyro-Mental Finger Breadths: 3 Mouth Opening Finger Breadths: 3 ROM/Head Extension: Full Lungs: Clear to Auscultation, Normal Respiratory Effort Cardiovascular: Regular Rate, Regular Rhythm, No Murmurs - Lab Values: Laboratory Last Values WBC 3.59 K/mm3 (3.98-10.04) L 09/20/19 07:30 RBC 4.62 M/mm3 (3.98-5.22) 09/20/19 07:30 Hgb 14.2 gm/dl (11.2-15.7) 09/20/19 07:30 Hct 40.8 % (34.1-44.9) 09/20/19 07:30 MCV 88.3 fl (79.4-94.8) 09/20/19 07:30 MCH 30.7 pg (25.6-32.2) 09/20/19 07:30 MCHC 34.8 g/dl (32.2-35.5) 09/20/19 07:30 RDW Std Deviation 38.5 fL (36.4-46.3) 09/20/19 07:30 Plt Count 313 K/mm3 (182-369) 09/20/19 07:30 MPV 9.5 fl (9.4-12.3) 09/20/19 07:30 Neut % (Auto) 48.4 % (34.0-71.1) 09/20/19 07:30 Lymph % (Auto) 39.6 % (19.3-51.7) 09/20/19 07:30 [place] % (Auto) 8.4 % (4.7-12.5) 09/20/19 07:30 Eos % (Auto) 2.8 (0.7-5.8) 09/20/19 07:30 Baso % (Auto) 0.8 % (0.1-1.2) 09/20/19 07:30 Neut # (Auto) 1.74 K/mm3 (1.56-6.13) 09/20/19 07:30 Lymph # (Auto) 1.42 K/mm3 (1.18-3.74) 09/20/19 07:30 [place] # (Auto) 0.30 K/mm3 (0.24-0.36) 09/20/19 07:30 Eos # (Auto) 0.10 K/mm3 (0.04-0.36) 09/20/19 07:30 Baso # (Auto) 0.03 K/mm3 (0.01-0.08) 09/20/19 07:30 All labs reviewed and noted and within acceptable ranges to proceed with scheduled procedure. - Imaging/EKG Impressions: EKG: SR rate=80 - Allergies Allergies/Adverse Reactions: Allergies Allergy/AdvReac Type Severity Reaction Status Date / Time kiwi Allergy Cannot Verified 09/19/19 14:44 Remember - Anesthesia Plan Pre-Op Medication Ordered: None - Acknowledgements Anesthesia Type Planned: General Anesthesia Pt an Appropriate Candidate for the Planned Anesthesia: Yes Alternatives and Risks of Anesthesia Discussed w Pt/Guardian: Yes Pt/Guardian Understands and Agrees with Anesthesia Plan: Yes PreAnesthesia Questionnaire - Past Health History Medical/Surgical History: Denies Medical/Surgical History HEENT History: Reports: Impaired Vision, Other (See Below) Other HEENT History: wears glasses, has contacts Cardiovascular History: Reports: Heart Murmur Respiratory History: Reports: None Gastrointestinal History: Reports: Other (See Below) Other Gastrointestinal History: viral gastroenteritis Genitourinary History: Reports: None 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: , Other (See Below) Other OB/BYN History: ovarian cyst, irregular menses, pelvic pain, nipple discharge, short cervix, bacterial vaginosis Musculoskeletal History: Reports: None Neurological History: Reports: None Psychiatric History: Reports: None Endocrine/Metabolic History: Reports: None Hematologic History: Reports: None Immunologic History: Reports: None Oncologic (Cancer) History: Reports: None Dermatologic History: Reports: None - Past Surgical History Head Surgeries/Procedures: Reports: None Cardiovascular Surgical History: Reports: None Respiratory Surgical History: Reports: None GI Surgical History: Reports: Cholecystectomy Female Surgical History: Reports: Section Endocrine Surgical History: Reports: None Neurological Surgical History: Reports: None Musculoskeletal Surgical History: Reports: None Dermatological Surgical History: Reports: None - SUBSTANCE USE Smoking Status *Q: Former Smoker Recreational Drug Use History: No - HOME MEDS Home Medications: Home Meds . [No Known Home Meds] 08/07/18 [History] - CURRENT (IN HOUSE) MEDS Current Meds: Current Medications Lactated Ringer's (Ringers, Lactated) 1,000 mls @ 125 mls/hr IV ASDIRECTED PRISCILLA Stop: 09/20/19 23:00 Lidocaine/Sodium Bicarbonate (Buffered Lidocaine 1% In Ns 8.4%) 0.25 ml IDERM ONETIME PRN PRN Reason: Prior to IV Start Stop: 09/20/19 18:00 Sodium Chloride (Saline Flush) 10 ml FLUSH ASDIRECTED PRN PRN Reason: Keep Vein Open Stop: 09/20/19 18:00 Discontinued Medications Bupivacaine HCl (Marcaine 0.5%) Confirm Administered Dose 30 ml .ROUTE .STK-MED ONE Stop: 09/20/19 07:14
--- NOTE | 2019-09-20 10:13 | PCM.POSTAN ---
POST ANESTHESIA ASSESSMENT - MENTAL STATUS Mental Status: Alert, Oriented - VITAL SIGNS Vital Signs: Last Vital Signs Temp 36.3 C 09/20/19 07:15 Pulse 95 09/20/19 07:15 Resp 16 09/20/19 07:15 BP 116/74 09/20/19 07:15 Pulse Ox 99 09/20/19 07:15 - RESPIRATORY Respiratory Status: Respiratory Rate WNL, Airway Patent, O2 Saturation Stable - CARDIOVASCULAR CV Status: Pulse Rate WNL, Blood Pressure Stable - GASTROINTESTINAL GI Status: No Symptoms - PAIN Pain Score: 0 - POST OP HYDRATION Hydration Status: Adequate & Stable - OBSERVATIONS Free Text/Narrative:: no anesthesia complications noted
--- NOTE | 2019-09-20 10:21 | PCM.OPNOTE ---
- General Post-Op/Procedure Note Date of Surgery/Procedure: 09/20/19 Operative Procedure(s): Diagnostic laparoscopy with lysis of adhesions Pre Op Diagnosis: Right ovarian cyst, pelvic pain Post-Op Diagnosis: Same plus adhesions of omentum to anterior abdominal wall Anesthesia Technique: General ET Tube Primary Surgeon: Jayson Melton Secondary Surgeon: Sekou Bautista Anesthesia Provider: Teo Oliva Housing Management Representative: Corrine Rogel (DUNCAN) Reason Housing Management Representative Was Necessary: Assist in surgery, decrease comorbidity and mortality. Role of Housing Management Representative: Assist in surgery, decrease comorbidity and mortality. Fluid Replacement, Intraop: 1,600 Output, Urine Amount: 0 EBL in mLs: 5 Drain/Tube Comments:: None Complications: None Condition: Good Free Text/Narrative:: Patient was transported to the operating room and medical office building. She had voided just prior to being transported to the operating room. SCDs in place and functioning. Ancef 2 g was given intravenously without complication. Patient had abdominal prep performed draped in a sterile fashion. Timeout performed. The area of the umbilicus where the planned incision for the scope was to be made was injected with 2.5 mL of Marcaine 0.5% without epinephrine. 6 mm vertical incision was made and the pneumoperitoneum was introduced and flow of gas begun. The initial flow gas was to the subcutaneous tissue the varies needle was removed and reinserted and pneumoperitoneum was then obtained without difficulty. The 5 mm self-retaining trocar inserted prompt resolution of the abdominal contents was obtained. Gallbladder had been removed previously. The liver appeared normal. The right ovary had a small cyst left ovary was normal both tubes were normal uterus was normal no evidence of anterior posterior cul-de-sac endometriosis. There were dense adhesions of the omentum to the anterior abdominal wall. Right 5 mm self-retaining trocar introduced after injecting 2.5 mL of Marcaine 0.5% and making a 6 mm incision the trocar was introduced without difficulty. Utilizing the Enseal the adhesions were grasped Enseal activated and incised adhesions were reduced without difficulty. Total estimated blood loss 5 mL. The reinspection of the operative area at the anterior abdominal wall and the omentum showed no bleeding the sponge and needle pack and instrument count correct x2. The right flank trocar was removed and area of insertion inspected no bleeding. The pneumoperitoneum was further reduced and the umbilical trocar removed. Both incisions were closed with 4-0 Monocryl interrupted suture and Dermabond applied. Transported to postanesthesia care unit in satisfactory condition. No blood transfusions required. It was noted at the time of surgery there was a significant amount of hard stool in the bowel. Patient will need to take Colace and other medications to control constipation. Images: 001 shows the right lobe of the liver and absent gallbladder 002 shows a left lobe of the liver dome of the diaphragm normal 003 shows adhesions of the omentum to the anterior abdominal wall just below and to the left of the umbilicus. 004 those additional adhesions of the omentum to the anterior abdominal wall 005 additional view of adhesions of the omentum to the anterior abdominal wall 006 shows beginning of reduction of the adhesions utilizing Enseal crossclamping activated again incising. 007 shows Enseal being harshil applied to the adhesions of the omentum to the anterior abdominal wall for lysis. 008 fundus of the uterus and anterior cul-de-sac with no endometriosis visualized 009 shows the left tube and ovary normal in appearance and the right corner the dome of the uterus. 010 anterior cul-de-sac with no evidence of endometriosis or other lesions 011 shows the fundus of the uterus the colon posteriorly and grasping the right fallopian tube 012 right tube and ovary with a small cyst noted at the inferior portion of the ovary physiologic 013 view of the posterior cul-de-sac and uterosacral ligament on the left side no evidence of endometriosis or other lesions. 014 appendix is seen at approximately 5:00 coursing posterior to the colon 015 tip of the appendix is noted below the colon 016 anterior abdominal wall after lysis of adhesions with some portion of the remaining omentum which is normal 017 anterior abdominal wall with some omentum visualized from where additional adhesions were lysed 018 8 flank peritoneal incision from the trocar no bleeding.
[2019-09-20 10:46] VITALS: PULSE 77
[2019-09-20 12:28] VITALS: BP 127/77
--- NOTE | 2019-09-20 15:01 | PCM48HPAN ---
Post Anesthesia Note - EVALUATION WITHIN 48HRS OF ANESTHETIC Vital Signs in Normal Range: Yes Patient Participated in Evaluation: Yes Respiratory Function Stable: Yes Airway Patent: Yes Cardiovascular Function Stable: Yes Hydration Status Stable: Yes Pain Control Satisfactory: Yes Nausea and Vomiting Control Satisfactory: Yes Mental Status Recovered: Yes Vital Signs: Last Vital Signs Temp 36.8 C 09/20/19 11:05 Pulse 77 09/20/19 11:05 Resp 16 09/20/19 11:05 BP 127/77 09/20/19 11:05 Pulse Ox 96 09/20/19 11:05
== END | disposition home or self-care (01) ==
LOC: JD.SDS 07:11
PROVIDERS: ATTEND Obstetrics & Gynecology
DX: K66.0 Peritoneal adhesions (postprocedural) (postinfection) (principal); N83.202 Unspecified ovarian cyst, left side; N92.6 Irregular menstruation, unspecified; F41.9 Anxiety disorder, unspecified; F32.9 Major depressive disorder, single episode, unspecified; Z91.018 Allergy to other foods; Z87.891 Personal history of nicotine dependence
CPT/HCPCS: 36415; 49329; 84702; 85025; 86850; 86900; 86901; A9270; J0690; J1100; J1170; J1885; J2001; J2250; J2405; J2704; J3010; J3490; J7120; 00840

== ENCOUNTER 2020-09-15 06:57 | Day surgery (SDC) | payer BC, OTHER ==
[~2020-09-15 06:57] MED LIST changes: -Acetaminophen 325 MG Tab PO ONE; -Bupivacaine 0.5% 30 ML SDV ONE; -Dexamethasone 4 MG/ML 5 ML MDV ONE; -HYDROmorphone 0.5 MG/0.5 ML Syringe IVPUSH PRN; -HYDROmorphone 0.5 MG/0.5 ML Syringe ONE; -Ketorolac 30 MG/ML SDV ONE; -Lactated Ringers 1,000 ML ONE; -Lidocaine 1% 6 ML ONE; -Midazolam 1 MG/ML 2 ML SDV ONE; -Ondansetron 4 MG Tab.DIS PO ONE; -Ondansetron 4 MG/2 ML SDV ONE; -Propofol 200 MG/20 ML SDV ONE; -Rocuronium 50 MG/5 ML Vial ONE; -ceFAZolin 1 GM Vial ONE; -fentaNYL 100 MCG/2 ML SDV IVPUSH PRN; -fentaNYL 250 MCG/5 ML SDV ONE
[2020-09-15] MEDS ORDERED: Methylene Blue 50 MG/10 ML Ampule ONE (07:21)
[2020-09-15] MEDS ORDERED: Dextrose 5% in Water 100 ML ONE (07:21)
[2020-09-15] MEDS ORDERED: Bupivacaine 0.5% 30 ML SDV ONE (07:21)
[2020-09-15] MEDS ORDERED: fentaNYL 250 MCG/5 ML SDV ONE (07:40)
[2020-09-15] MEDS ORDERED: Rocuronium 50 MG/5 ML Vial ONE (07:40)
[2020-09-15] MEDS ORDERED: Ondansetron 4 MG/2 ML SDV ONE (07:40)
[2020-09-15] MEDS ORDERED: ceFAZolin 1 GM Vial ONE (07:40)
[2020-09-15] MEDS ORDERED: Midazolam 1 MG/ML 2 ML SDV ONE (07:40)
[2020-09-15] MEDS ORDERED: Lactated Ringers 1,000 ML ONE (07:40)
[2020-09-15] MEDS ORDERED: Lidocaine 1% 4 ML ONE (07:40)
[2020-09-15] MEDS ORDERED: Propofol 200 MG/20 ML SDV ONE (07:40)
[2020-09-15] MEDS ORDERED: Dexamethasone 4 MG/ML 5 ML MDV ONE (07:41)
[2020-09-15] MEDS ORDERED: Ketorolac 15 MG/ML SDV ONE (07:41)
--- NOTE | 2020-09-15 07:50 | PCM.PREANE ---
Preanesthetic Assessment - Procedure Proposed Procedure: Diagnostic Laparoscopy - Anesthesia/Transfusion/Family Hx Anesthesia History: Prior Anesthesia Without Reaction Family History of Anesthesia Reaction: No Transfusion History: No Prior Transfusion(s) Type of Transfusion Reactions: Reports: Unknown Intubation History: Unknown - Review of Systems General: No Symptoms Pulmonary: No Symptoms, Other (Former Smoker ) Cardiovascular: No Symptoms Gastrointestinal: No Symptoms Neurological: No Symptoms Other: Reports: Depression, Anxiety - Physical Assessment NPO Status Date: 09/14/20 NPO Status Time: 21:30 Vital Signs: 98F 118/70 76 99% 16 Weight: 64.5 kg ASA Class: 2 Mental Status: Alert & Oriented x3 Airway Class: Mallampati = 1 Dentition: Reports: Normal Dentition Thyro-Mental Finger Breadths: 3 Mouth Opening Finger Breadths: 3 ROM/Head Extension: Full Lungs: Clear to Auscultation, Normal Respiratory Effort Cardiovascular: Regular Rate, Regular Rhythm, Murmurs - Lab Values: Laboratory Last Values WBC 3.33 K/mm3 (3.98-10.04) L 09/15/20 07:20 RBC 4.70 M/mm3 (3.98-5.22) 09/15/20 07:20 Hgb 14.1 gm/dl (11.2-15.7) 09/15/20 07:20 Hct 41.8 % (34.1-44.9) 09/15/20 07:20 MCV 88.9 fl (79.4-94.8) 09/15/20 07:20 MCH 30.0 pg (25.6-32.2) 09/15/20 07:20 MCHC 33.7 g/dl (32.2-35.5) 09/15/20 07:20 RDW Std Deviation 37.7 fL (36.4-46.3) 09/15/20 07:20 Plt Count 255 K/mm3 (182-369) 09/15/20 07:20 MPV 10.2 fl (9.4-12.3) 09/15/20 07:20 Neut % (Auto) 46.3 % (34.0-71.1) 09/15/20 07:20 Lymph % (Auto) 42.0 % (19.3-51.7) 09/15/20 07:20 [place] % (Auto) 9.0 % (4.7-12.5) 09/15/20 07:20 Eos % (Auto) 2.1 (0.7-5.8) 09/15/20 07:20 Baso % (Auto) 0.6 % (0.1-1.2) 09/15/20 07:20 Neut # (Auto) 1.54 K/mm3 (1.56-6.13) L 09/15/20 07:20 Lymph # (Auto) 1.40 K/mm3 (1.18-3.74) 09/15/20 07:20 [place] # (Auto) 0.30 K/mm3 (0.24-0.36) 09/15/20 07:20 Eos # (Auto) 0.07 K/mm3 (0.04-0.36) 09/15/20 07:20 Baso # (Auto) 0.02 K/mm3 (0.01-0.08) 09/15/20 07:20 - Allergies Allergies/Adverse Reactions: Allergies Allergy/AdvReac Type Severity Reaction Status Date / Time kiwi Allergy Cannot Verified 09/15/20 08:20 Remember sulfamethoxazole Allergy Cannot Verified 09/15/20 08:20 [From Bactrim] Remember trimethoprim [From Bactrim] Allergy Cannot Verified 09/15/20 08:20 Remember - Anesthesia Plan Pre-Op Medication Ordered: Anxiolytic - Acknowledgements Anesthesia Type Planned: General Anesthesia Pt an Appropriate Candidate for the Planned Anesthesia: Yes Alternatives and Risks of Anesthesia Discussed w Pt/Guardian: Yes Pt/Guardian Understands and Agrees with Anesthesia Plan: Yes PreAnesthesia Questionnaire - Past Health History Medical/Surgical History: Denies Medical/Surgical History HEENT History: Reports: Impaired Vision, Other (See Below) Other HEENT History: wears glasses, has contacts Cardiovascular History: Reports: Heart Murmur Respiratory History: Reports: None Gastrointestinal History: Reports: Other (See Below) Other Gastrointestinal History: viral gastroenteritis Genitourinary History: Reports: None 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: , Other (See Below) Other OB/BYN History: ovarian cyst, irregular menses, pelvic pain, nipple discharge, short cervix, bacterial vaginosis Musculoskeletal History: Reports: None Neurological History: Reports: None Psychiatric History: Reports: Anxiety, Depression Endocrine/Metabolic History: Reports: None Hematologic History: Reports: None Immunologic History: Reports: None Oncologic (Cancer) History: Reports: None Dermatologic History: Reports: None - Infectious Disease History Infectious Disease History: Reports: None - Past Surgical History Head Surgeries/Procedures: Reports: None HEENT Surgical History: Reports: None Cardiovascular Surgical History: Reports: None Respiratory Surgical History: Reports: None GI Surgical History: Reports: Cholecystectomy Female Surgical History: Reports: Section Endocrine Surgical History: Reports: None Neurological Surgical History: Reports: None Musculoskeletal Surgical History: Reports: None Dermatological Surgical History: Reports: None - SUBSTANCE USE Tobacco Use Status *Q: Never Tobacco User Recreational Drug Use History: No - HOME MEDS Home Medications: Home Meds Acetaminophen 650 mg PO Q6H #50 capsule 09/15/20 [Rx] Ibuprofen 600 mg PO Q6H #50 tablet 09/15/20 [Rx] - CURRENT (IN HOUSE) MEDS Current Meds: Current Medications Lactated Ringer's (Ringers, Lactated) 1,000 mls @ 125 mls/hr IV ASDIRECTED PRISCILLA Lidocaine/Sodium Bicarbonate (Buffered Lidocaine 1% In Ns 8.4%) 0.25 ml IDERM ONETIME PRN PRN Reason: Prior to IV Start Sodium Chloride (Saline Flush) 10 ml FLUSH ASDIRECTED PRN PRN Reason: Keep Vein Open Discontinued Medications Bupivacaine HCl (Marcaine 0.5%) Confirm Administered Dose 30 ml .ROUTE .STK-MED ONE Stop: 09/15/20 07:22 Cefazolin Sodium (Ancef) Confirm Administered Dose 2 gm .ROUTE .STK-MED ONE Stop: 09/15/20 07:41 Dexamethasone (Dexamethasone) Confirm Administered Dose 20 mg .ROUTE .STK-MED ONE Stop: 09/15/20 07:42 Fentanyl (Sublimaze) Confirm Administered Dose 250 mcg .ROUTE .STK-MED ONE Stop: 09/15/20 07:41 Dextrose/Water (Dextrose 5% In Water) Confirm Administered Dose 100 mls @ as directed .ROUTE .STK-MED ONE Stop: 09/15/20 07:22 Lidocaine HCl (Xylocaine-Mpf 1%) Confirm Administered Dose 4 mls @ as directed .ROUTE .STK-MED ONE Stop: 09/15/20 07:41 Lactated Ringer's (Ringers, Lactated) Confirm Administered Dose 1,000 mls @ as directed .ROUTE .STK-MED ONE Stop: 09/15/20 07:41 Ketorolac Tromethamine (Toradol) Confirm Administered Dose 15 mg .ROUTE .STK-MED ONE Stop: 09/15/20 07:42 Methylene Blue (Provayblue) Confirm Administered Dose 50 mg .ROUTE .STK-MED ONE Stop: 09/15/20 07:22 Midazolam HCl (Versed 1 Mg/Ml) Confirm Administered Dose 2 mg .ROUTE .STK-MED ONE Stop: 09/15/20 07:41 Ondansetron HCl (Zofran) Confirm Administered Dose 4 mg .ROUTE .STK-MED ONE Stop: 09/15/20 07:41 Propofol (Diprivan 20 Ml) Confirm Administered Dose 400 mg .ROUTE .STK-MED ONE Stop: 09/15/20 07:41 Rocuronium [place] (Zemuron) Confirm Administered Dose 50 mg .ROUTE .STK-MED ONE Stop: 09/15/20 07:41
[2020-09-15] MEDS ORDERED: fentaNYL 100 MCG/2 ML SDV IVPUSH PRN (07:51)
[2020-09-15] MEDS ORDERED: HYDROmorphone 0.5 MG/0.5 ML Syringe IVPUSH PRN (07:51)
[2020-09-15] MEDS ORDERED: Ondansetron 4 MG/2 ML SDV IVPUSH PRN (07:51)
--- NOTE | 2020-09-15 09:35 | PCM.OPNOTE ---
- General Post-Op/Procedure Note Date of Surgery/Procedure: 09/15/20 Operative Procedure(s): Diagnostic laparoscopy with right oophorectomy, chromotubation Pre Op Diagnosis: Ovarian cyst N83.209, pelvic pain R10.2 Post-Op Diagnosis: Same Anesthesia Technique: General ET Tube Primary Surgeon: Jayson Melton Secondary Surgeon: Sekou Bautista Anesthesia Provider: Marie Moya District Captain: Mayuri Cedeno I (PAS) Reason District Captain Was Necessary: assist in surgery, decrease co-morbidity and mortaliy Role of District Captain: assist in surgery, decrease co-morbidity and mortaliy Fluid Replacement, Intraop: 1,000 Output, Urine Amount: 100 EBL in mLs: 5 Drain/Tube Comments:: None Complications: None Condition: Good Free Text/Narrative:: It was transported to operating room placed under general anesthesia with endotracheal intubation in the dorsal position. SCDs in place and functioning prior to surgery. Ancef 2 g given intravenously prior to surgery. Examination under anesthesia revealed anterior uterus no adnexal masses ovaries were easily palpable. Timeout performed confirming name, date of , procedure as la paroscopy removal of right ovary chromotubation. Lowery catheter was placed to gravity drainage and removed after the procedure. Uterine manipulator was introduced without difficulty and removed at the end of procedure this was utilized to inject the methylene blue solution. 2 mL of 0.5% Marcaine injected the area of the planned incision for the laparoscopy at the umbilicus. Pneumoperitoneum needle was introduced and pneumoperitoneum was obtained without difficulty. A right lower quadrant incision made after transillumination of the abdomen and 5 mm trocar introduced through that incision. A suprapubic midline incision at the area of the old scar allowed placement of a 10/12 mm port. An of the abdominal contents including both ovaries and tubes appeared normal no endometriosis seen liver appeared normal appendix appeared normal patient has had previous cholecystectomy. Patient had been insistent upon removal of the right ovary declined conservative measures, patient understands additional pain may start happening monthly or every other month on the left side because the left ovary still remains. Chromotubation was accomplished without difficulty after removal of the right ovary. The right ovary was removed utilizing Enseal crossclamping and the mesovarium activating and incising the right ovary was removed placed in an Endobag and removed through the suprapubic incision. Sponge needle pack instrument counts were correct pneumoperitoneum reduced and trochars removed. The suprapubic right lower quadrant and umbilical incisions were closed the suprapubic incision closed with anterior fascia with 0 Vicryl. The nuclear closures with 4-0 Monocryl for the right lower quadrant umbilical and suprapubic incision. The patient transported to postanesthesia care unit in satisfactory condition after the procedure was completed. I talked with patient significant other Jarod and all questions answered to his voiced satisfaction. Images: 001 right tube and ovary 002 left tube and ovary 003 right tube with spill of methylene blue after removal of the right ovary 004 methylene blue spilled on the patient's left side both fallopian tubes appeared normal 005 the appendix appears normal 006 right lobe of the liver is normal gallbladder is missing previous cholecystectomy 007 right lower quadrant incision where the trocar was removed with no bleeding.
--- NOTE | 2020-09-15 09:37 | PCM.POSTAN ---
POST ANESTHESIA ASSESSMENT - MENTAL STATUS Mental Status: Somnolent - VITAL SIGNS Vital Signs: Last Vital Signs Temp 36.7 C 09/15/20 07:15 Pulse 76 09/15/20 07:15 Resp 16 09/15/20 07:15 BP 118/70 09/15/20 07:15 Pulse Ox 99 09/15/20 07:15 0932 109/68 73 10 100% 97.5F - RESPIRATORY Respiratory Status: Respiratory Rate WNL, Airway Patent, O2 Saturation Stable, Supplemental Oxygen - CARDIOVASCULAR CV Status: Pulse Rate WNL, Blood Pressure Stable - GASTROINTESTINAL GI Status: No Symptoms - PAIN Pain Score: 0 - POST OP HYDRATION Hydration Status: Adequate & Stable
[2020-09-15] MEDS ORDERED: Acetaminophen/oxyCODONE 325-5 MG Tab PO PRN (11:09)
--- NOTE | 2020-09-15 11:43 | PCM48HPAN ---
Post Anesthesia Note - EVALUATION WITHIN 48HRS OF ANESTHETIC Vital Signs in Normal Range: Yes Patient Participated in Evaluation: Yes Respiratory Function Stable: Yes Airway Patent: Yes Cardiovascular Function Stable: Yes Hydration Status Stable: Yes Pain Control Satisfactory: Yes Nausea and Vomiting Control Satisfactory: Yes Mental Status Recovered: Yes Vital Signs: Last Vital Signs Temp 36.6 C 09/15/20 10:15 Pulse 66 09/15/20 10:30 Resp 16 09/15/20 10:30 BP 120/78 09/15/20 10:30 Pulse Ox 100 09/15/20 10:30
[2020-09-15 11:53] VITALS: BP 106/61; PULSE 75
== END 2020-09-15 11:44 | disposition home or self-care (01) ==
LOC: JD.SDS 06:57
PROVIDERS: ATTEND Obstetrics & Gynecology
DX: N83.201 Unspecified ovarian cyst, right side (principal); F41.9 Anxiety disorder, unspecified; F32.9 Major depressive disorder, single episode, unspecified; N92.6 Irregular menstruation, unspecified; Z88.1 Allergy status to other antibiotic agents; Z91.018 Allergy to other foods; Z90.49 Acquired absence of other specified parts of digestive tract; Z98.890 Other specified postprocedural states; Z87.891 Personal history of nicotine dependence
CPT/HCPCS: 36415; 58661; 84703; 85025; A9270; J0690; J1100; J1170; J1885; J2001; J2250; J2405; J2704; J3010; J3490; J7060; J7120; 00840

== ENCOUNTER 2021-10-05 02:20 | Inpatient (IN) | payer BC ==
[2021-10-05] MEDS ORDERED: Ondansetron 4 MG/2 ML SDV IVPUSH PRN (02:35)
[2021-10-05] MEDS ORDERED: Lidocaine 1% 50 ML MDV INJECT ONE (02:35)
[2021-10-05] MEDS ORDERED: Nalbuphine 10 MG/1 ML Vial IVPUSH PRN (02:35)
[2021-10-05] MEDS ORDERED: Oxytocin/Lactated Ringers 10 UNIT/1,000 ML BAG IV SCH ×2 (02:45→04:00)
[2021-10-05] MEDS: Lactated Ringers 1,000 ML IV SCH ×4 (03:30→11:06)
[2021-10-05] MEDS ORDERED: Ampicillin 2 GM in Sodium Chloride 0.9% 100 ML IV ONE (04:00)
--- NOTE | 2021-10-05 06:11 | PCM.LDHP ---
L&D History of Present Illness - General Date of Service: 10/05/21 Admit Problem/Dx: Patient Status Order with Admit Dx/Problem 10/05/21 02:35 Patient Status [ADT] Routine Admission Diagnosis/Problem Admission Diagnosis/Problem 10/05/21 06:00 Brandi is a 26-year-old 2 para 0-1-0-1 female who is presently at 40-0/7 weeks gestational age with an KASSIE of 10/05/2021 who is admitted for induction of labor. Source of Information: Patient History Limitations: Reports: No Limitations - History of Present Illness Introduction:: Brandi is a 26-year-old 2 para 0-1-0-1 female who is presently at 40-0/7 weeks gestational age with an KASSIE of 10/05/2021 who is admitted for induction of labor. She had a previous section done for breech presentation at 34- 5/7 weeks gestational age. The procedure of induction of labor, trial of labor after section with an attempt at vaginal after section are discussed in detail with patient. She appears to understand the risk of b enefits and alternatives of care including doing a repeat section. She wishes to proceed and signed consent for the above. 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 Patient had menarche at approximately age 13. Cycles regular. Not using any control at the time of conception. Her KASSIE of 09/27/2021 was by early ultrasound. It is supported by 2 other ultrasounds done later in the . Patient denies any abnormal Pap smears. She has no history of STIs previously. She does have a history of polycystic ovarian syndrome. She previously had some anxiety and depression. Myriam daniels's previous included the followin. Male born 07/13/2016 at 34-5/7 weeks gestational age. 5 pound 11 ounce delivered by section done for breech presentation. Spinal anesthesia use. Lisa Jaquez course: Patient was initially seen at 9-1/7 weeks gestational age. Ultrasound done at that time placed her KASSIE of 10/05/2021. She is seen on a very regular basis. Her weight gain was from a 151 pounds to 185 pounds for 34 pound increase. Her vital signs been stable throughout the course. She is group B strep positive. She had a history of recurrent UTIs in the last and repeated urinalysis were negative during this . She declined genetic testing. She plans to breast-feed. Tdap was given on 08/05/2021. She is rubella immune. Varicella immunization was given in 2008. HPV immunization given in 2018. Hepatitis A immunization in 2001. Hepatitis B immunization given in 2014. Meningococcal immunization given in 2008. Laboratory testing shows blood to be a positive with a negative antibody screen. First labs showed a hemoglobin of 14.4 g/dL and platelets at 324,000. She is rubella immune. RPR is nonreactive. Urine culture was negative. Hepatitis B surface antigen and HIV assays were both negative. Chlamydia, gonorrhea, HCV antibody testing was negative. Second trimester labs showed hemoglobin 11.7 and patient was advised to start iron. Her platelets at that time was 377,000 and her 1 hour GTT was 69. RPR on 07/12/2021 was nonreactive. Group B strep screen was negative. Allergies: 1. Kiwi which causes itching 2. Bactrim which causes itching. Medications: 1. Sertraline 50 mg p.o. daily 2. vitamins 1 p.o. daily Past medical history: 1. Depression anxietyon medications 2. History of PCOS Past surgical history: 1. Laparoscopic cholecystectomy 2019. 2. Right oophorectomy September 2020. Family history: Mother is alive and well at age 46. Father at age 50 from suicidethis occurred 1 year ago. 1 brother alive and well at age 26. Maternal grandmother alive and well except for back problems at age 63. Maternal grandfather alive and well with heart problems age 67. Paternal grandmother uncertain of history she is at age 70 and is alive. Paternal grandfather secondary to heart problems at age 72. She is uncertain but her brother has some type of thyroid issues but does not know if this is hyper or hypoactivity. No anesthesia, bleeding, blood clotting problems noted in the family. Social history: Patient is . is Jarod Salinas. They live in [place], [place]. She does not use any significance alcohol, drugs or tobacco. Review of systems: Review of systems: In general patient has no complaints. He has been active. No significant complaints of contractions noted. Skin: Negative Lungs: No infectious symptoms or shortness of breath Cardiovascular: No chest pain or exercise intolerance Breasts: changes. Patient plans to breast-feed. GI: Negative : Body habitus changes associated with . Musculoskeletal: Negative Neurological: Negative Physical exam: In general the patient is well-developed, well-nourished, pleasant female of stated age in no acute distress. Last evaluation in clinic on 09/30/2021 showed the patient's blood pressure was 120/60. Weight was 185 with a pregravid weight at 151. Height is 5 feet 5 inches. Prepregnancy body mass index is 25. heart rate was 144. Skin is warm dry without lesions. HEENT, neck and back within normal limits. Lungs are clear with good breath sounds in all lung jurado. Cardiovascular exam shows regular and rhythm without murmurs. Breast exam done at first visit was unremarkable. Is not repeated at this time. Abdomen is gravid with last fundal height in clinic at 37.5 cm. Baby in vertex presentation. Genital exam showed digital evaluation on last visit to be 2 cm, 90% effaced, soft, mid position, well applied to the cervix. Extremities and neurological exam are grossly within normal limits. - Related Data Allergies/Adverse Reactions: Allergies Allergy/AdvReac Type Severity Reaction Status Date / Time kiwi Allergy Itching Verified 10/05/21 03:52 sulfamethoxazole Allergy Itching Verified 10/05/21 03:52 [From Bactrim] trimethoprim [From Bactrim] Allergy Itching Verified 10/05/21 03:52 Home Medications: Home Meds Pnv No.95/Ferrous Fum/Folic AC [ Vitamin Tablet] 1 tab PO DAILY 10/05/21 [History] Sertraline [Zoloft] 1 tab PO DAILY 10/05/21 [History] Past Medical History - Past Health History Medical/Surgical History: Denies Medical/Surgical History HEENT History: Reports: Impaired Vision, Other (See Below) Other HEENT History: wears glasses, has contacts Cardiovascular History: Reports: Heart Murmur Respiratory History: Reports: None Gastrointestinal History: Reports: None Other Gastrointestinal History: viral gastroenteritis Genitourinary History: Reports: UTI, Recurrent, Other (See Below) Other Genitourinary History: denies infection symptoms at this time 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, Other OB/BYN History: ovarian cyst, irregular menses, pelvic pain, nipple discharge, short cervix, bacterial vaginosis Musculoskeletal History: Reports: None Neurological History: Reports: None Psychiatric History: Reports: Anxiety, Depression Endocrine/Metabolic History: Reports: None Hematologic History: Reports: None Immunologic History: Reports: None Oncologic (Cancer) History: Reports: None Dermatologic History: Reports: None - Infectious Disease History Infectious Disease History: Reports: None - Past Surgical History Head Surgeries/Procedures: Reports: None HEENT Surgical History: Reports: None Cardiovascular Surgical History: Reports: None GI Surgical History: Reports: Cholecystectomy Other GI Surgeries/Procedures: 2020 Female Surgical History: Reports: Section, Oophorectomy Endocrine Surgical History: Reports: None Neurological Surgical History: Reports: None Musculoskeletal Surgical History: Reports: None Dermatological Surgical History: Reports: None Social & Family History - Family History Family Medical History: No Pertinent Family History - Tobacco Use Tobacco Use Status *Q: Never Tobacco User Second Hand Smoke Exposure: No - Caffeine Use Caffeine Use: Reports: Coffee - Recreational Drug Use Recreational Drug Use: No H&P Review of Systems - Review of Systems: Review Of Systems: See Below L&D Exam - Exam Exam: See Below - Vital Signs Vital Signs: Last Vital Signs Temp 37.4 C 10/05/21 03:15 Pulse 83 10/05/21 03:15 Resp 16 10/05/21 03:15 BP 128/78 10/05/21 03:15 Pulse Ox 98 10/05/21 03:15 Weight: 83.733 kg - Patient Data Lab Results Last 24 hrs: Laboratory Results - last 24 hr 10/05/21 10/05/21 10/05/21 Range/Units 03:05 03:29 03:29 WBC 5.03 (3.98-10.04) K/mm3 RBC 3.95 L (3.98-5.22) M/mm3 Hgb 11.2 (11.2-15.7) gm/dl Hct 34.3 (34.1-44.9) % MCV 86.8 D (79.4-94.8) fl MCH 28.4 (25.6-32.2) pg MCHC 32.7 (32.2-35.5) g/dl RDW Std Deviation 38.6 (36.4-46.3) fL Plt Count 260 D (182-369) K/mm3 MPV 11.6 (9.4-12.3) fl Neut % (Auto) 54.3 (34.0-71.1) % Lymph % (Auto) 34.0 (19.3-51.7) % [place] % (Auto) 9.5 (4.7-12.5) % Eos % (Auto) 1.8 (0.7-5.8) Baso % (Auto) 0.4 (0.1-1.2) % Neut # (Auto) 2.73 (1.56-6.13) K/mm3 Lymph # (Auto) 1.71 (1.18-3.74) K/mm3 [place] # (Auto) 0.48 H (0.24-0.36) K/mm3 Eos # (Auto) 0.09 (0.04-0.36) K/mm3 Baso # (Auto) 0.02 (0.01-0.08) K/mm3 SARS-CoV-2 RNA (JAYJAY) Negative (NEGATIVE) Blood Type A POSITIVE Gel Antibody Screen Negative Result Diagrams: 10/05/21 03:29 - Problem List (1) 40 weeks gestation of SNOMED Code(s): 01546278 ICD Code: Z3A.40 - 40 WEEKS GESTATION OF Status: Acute Current Visit: Yes (2) Mother positive for group B Streptococcus colonization SNOMED Code(s): 68031731940382 ICD Code: P00.82 - NB AFF BY (POSITIVE) MATERN GROUP B STREP (GBS) COLONIZATION Status: Acute Current Visit: Yes (3) Previous section SNOMED Code(s): 906428996 ICD Code: Z98.891 - HISTORY OF UTERINE SCAR FROM PREVIOUS SURGERY Status: Acute Current Visit: Yes (4) Previous delivery in third trimester, antepartum SNOMED Code(s): 852131519, 675784791 ICD Code: O09.213 - SUPRVSN OF PREG W HISTORY OF PRE-TERM LABOR, THIRD TRI MESTER Status: Acute Current Visit: Yes Problem List Initiated/Reviewed/Updated: Yes Orders Last 24hrs: Active Orders 24 hr Category Date Time Status Patient Status [ADT] Routine ADT 10/05/21 02:35 Active Activity as Tolerated [RC] PFP Care 10/05/21 02:35 Active Communication Order [RC] ASDIRECTED Care 10/05/21 02:35 Active Heart Tones [RC] ASDIRECTED Care 10/05/21 02:37 Active Non Stress Test [RC] PER UNIT ROUTINE Care 10/05/21 02:35 Active Notify Provider [RC] PFP Care 10/05/21 02:35 Active Notify Provider [RC] PRN Care 10/05/21 02:35 Active Vital Signs [RC] PER UNIT ROUTINE Care 10/05/21 02:35 Active Regular Diet [DIET] Diet 10/05/21 Breakfast Active RAPID PLASMA REAGIN,RPR [CHEM] Routine Lab 10/05/21 03:29 Received Ampicillin 1 gm Med 10/05/21 08:00 Active Sodium Chloride 0.9% [Normal Saline AdvBag] 100 ml IV Q4H Lactated Ringers [Ringers, Lactated] 1,000 ml Med 10/05/21 02:45 Active IV ASDIRECTED Nalbuphine [Nubain] Med 10/05/21 02:35 Active 10 mg IVPUSH Q2H PRN Ondansetron [Zofran] Med 10/05/21 02:35 Active 4 mg IVPUSH Q4H PRN Oxytocin/Lactated Ringers [Pitocin in LR 10 Units/1,000 Med 10/05/21 02:45 Active ML] 10 unit in 1,000 ml IV .CONTINUOUS Oxytocin/Lactated Ringers [Pitocin in LR 10 Units/1,000 Med 10/05/21 04:00 Active ML] 10 unit in 1,000 ml IV TITRATE Sodium Chloride 0.9% [Saline Flush] Med 10/05/21 09:00 Active 10 ml FLUSH 0900,2100 Electronic Heart Tones Ext w TOCO [WOMSER] Oth 10/05/21 02:35 Ordered Routine Electronic Heart Tones Internal [WOMSER] Per Unit Oth 10/05/21 02:35 Ordered Routine Peripheral IV Insertion Adult [OM.PC] Routine Oth 10/05/21 02:35 Ordered Resuscitation Status Routine Resus Stat 10/05/21 02:35 Ordered Medication Orders Ampicillin Sodium 1 gm/ Sodium (Chloride) 100 mls @ 200 mls/hr IV Q4H PRISCILLA Oxytocin/Lactated Ringer's (Pitocin In Lr 10 Units/1,000 Ml) 10 unit in 1,000 mls @ 12 mls/hr IV TITRATE PRISCILLA; Protocol Oxytocin/Lactated Ringer's (Pitocin In Lr 10 Units/1,000 Ml) 10 unit in 1,000 mls @ 500 mls/hr IV .CONTINUOUS PRISCILLA Lactated Ringer's (Ringers, Lactated) 1,000 mls @ 100 mls/hr IV ASDIRECTED [facility] Last Admin: 10/05/21 03:30 Dose: 100 mls/hr Documented by: ANT Nalbuphine HCl (Nalbuphine 10 Mg/1 Ml Vial) 10 mg IVPUSH Q2H PRN PRN Reason: Pain Ondansetron HCl (Ondansetron 4 Mg/2 Ml Sdv) 4 mg IVPUSH Q4H PRN PRN Reason: Nausea/Vomiting Sodium Chloride (Sodium Chloride 0.9% 10 Ml Syringe) 10 ml FLUSH 0900,2100 [facility] Assessment/Plan Comment:: 1.Brandi is a 26-year-old 2 para 0-1-0-1 female who is presently at 40- 0/7 weeks gestational age with an KASSIE of 10/05/2021 who is admitted for deonna ction of labor. 2. Risk factors include history of previous section with desire for trial of labor after section for attempt at vaginal after section, history of rupture membranes, history of previous breech presentation, group B strep positive status, distance from the hospital. 3. Patient plans to breast-feed. 4. Patient desires epidural for labor analgesia 5. Patient is rubella immune. She has received her Tdap. 6. Patient's blood is 8+. Plan: 1. Consents have been signed for repeat section and for TOLAC for . 2. labs obtained 3. We will do near continuous heart rate monitoring 4. Epidural when patient desires and is appropriate 5. We will alert anesthesia and surgery staff as to presence of a candidate in L&D. 6. Anticipate 7. Support breast-feeding decision
[2021-10-05] MEDS ORDERED: fentaNYL 100 MCG/2 ML SDV EPIDUR PRN (07:13)
[2021-10-05] MEDS ORDERED: diphenhydrAMINE 50 MG/ML SDV IVPUSH PRN (07:13)
[2021-10-05] MEDS ORDERED: ePHEDrine 50 MG/ML SDV IVPUSH PRN (07:13)
[2021-10-05] MEDS ORDERED: Bupivacaine/fentaNYL/NS 100 ML Bag EPIDUR PRN (07:13)
[2021-10-05] MEDS: Ampicillin 1 GM in Sodium Chloride 0.9% 100 ML IV SCH ×3 (07:18→16:03)
[2021-10-05] MEDS ORDERED: Sodium Chloride 0.9% 10 ML Syringe FLUSH SCH (09:00)
--- NOTE | 2021-10-05 09:55 | PCM.PREANE ---
Preanesthetic Assessment - Procedure Proposed Procedure: Continuous labor epidural - Anesthesia/Transfusion/Family Hx Anesthesia History: Prior Anesthesia Without Reaction Transfusion History: No Prior Transfusion(s) Type of Transfusion Reactions: Reports: Unknown Intubation History: Unknown - Review of Systems General: No Symptoms Pulmonary: No Symptoms Cardiovascular: No Symptoms Gastrointestinal: No Symptoms Neurological: No Symptoms Other: Reports: None - Physical Assessment Vital Signs: Last Vital Signs Temp 99.3 F 10/05/21 03:15 Pulse 83 10/05/21 03:15 Resp 16 10/05/21 03:15 BP 128/78 10/05/21 03:15 Pulse Ox 98 10/05/21 03:15 Height: 1.65 m Weight: 83.733 kg ASA Class: 2 Mental Status: Alert & Oriented x3 Airway Class: Mallampati = 2 Dentition: Reports: Normal Dentition Thyro-Mental Finger Breadths: 3 Mouth Opening Finger Breadths: 3 ROM/Head Extension: Full Lungs: Clear to Auscultation, Normal Respiratory Effort Cardiovascular: Regular Rate, Regular Rhythm - Lab Values: Laboratory Last Values WBC 5.03 K/mm3 (3.98-10.04) 10/05/21 03:29 RBC 3.95 M/mm3 (3.98-5.22) L 10/05/21 03:29 Hgb 11.2 gm/dl (11.2-15.7) 10/05/21 03:29 Hct 34.3 % (34.1-44.9) 10/05/21 03:29 MCV 86.8 fl (79.4-94.8) D 10/05/21 03:29 MCH 28.4 pg (25.6-32.2) 10/05/21 03:29 MCHC 32.7 g/dl (32.2-35.5) 10/05/21 03:29 RDW Std Deviation 38.6 fL (36.4-46.3) 10/05/21 03:29 Plt Count 260 K/mm3 (182-369) D 10/05/21 03:29 MPV 11.6 fl (9.4-12.3) 10/05/21 03:29 Neut % (Auto) 54.3 % (34.0-71.1) 10/05/21 03:29 Lymph % (Auto) 34.0 % (19.3-51.7) 10/05/21 03:29 [place] % (Auto) 9.5 % (4.7-12.5) 10/05/21 03:29 Eos % (Auto) 1.8 (0.7-5.8) 10/05/21 03:29 Baso % (Auto) 0.4 % (0.1-1.2) 10/05/21 03:29 Neut # (Auto) 2.73 K/mm3 (1.56-6.13) 10/05/21 03:29 Lymph # (Auto) 1.71 K/mm3 (1.18-3.74) 10/05/21 03:29 [place] # (Auto) 0.48 K/mm3 (0.24-0.36) H 10/05/21 03:29 Eos # (Auto) 0.09 K/mm3 (0.04-0.36) 10/05/21 03:29 Baso # (Auto) 0.02 K/mm3 (0.01-0.08) 10/05/21 03:29 SARS-CoV-2 RNA (JAYJAY) Negative (NEGATIVE) 10/05/21 03:05 Blood Type A POSITIVE 10/05/21 03:29 Gel Antibody Screen Negative 10/05/21 03:29 - Allergies Allergies/Adverse Reactions: Allergies Allergy/AdvReac Type Severity Reaction Status Date / Time kiwi Allergy Itching Verified 10/05/21 03:52 sulfamethoxazole Allergy Itching Verified 10/05/21 03:52 [From Bactrim] trimethoprim [From Bactrim] Allergy Itching Verified 10/05/21 03:52 - Acknowledgements Anesthesia Type Planned: Epidural Pt an Appropriate Candidate for the Planned Anesthesia: Yes Alternatives and Risks of Anesthesia Discussed w Pt/Guardian: Yes Pt/Guardian Understands and Agrees with Anesthesia Plan: Yes PreAnesthesia Questionnaire - Past Health History Medical/Surgical History: Denies Medical/Surgical History HEENT History: Reports: Impaired Vision, Other (See Below) Other HEENT History: wears glasses, has contacts Cardiovascular History: Reports: Heart Murmur Respiratory History: Reports: None Gastrointestinal History: Reports: None Other Gastrointestinal History: viral gastroenteritis Genitourinary History: Reports: UTI, Recurrent, Other (See Below) Other Genitourinary History: denies infection symptoms at this time 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, Other OB/BYN History: ovarian cyst, irregular menses, pelvic pain, nipple discharge, short cervix, bacterial vaginosis Musculoskeletal History: Reports: None Neurological History: Reports: None Psychiatric History: Reports: Anxiety, Depression Endocrine/Metabolic History: Reports: None Hematologic History: Reports: None Immunologic History: Reports: None Oncologic (Cancer) History: Reports: None Dermatologic History: Reports: None - Infectious Disease History Infectious Disease History: Reports: None - Past Surgical History Head Surgeries/Procedures: Reports: None HEENT Surgical History: Reports: None Cardiovascular Surgical History: Reports: None GI Surgical History: Reports: Cholecystectomy Other GI Surgeries/Procedures: 2020 Female Surgical History: Reports: Section, Oophorectomy Endocrine Surgical History: Reports: None Neurological Surgical History: Reports: None Musculoskeletal Surgical History: Reports: None Dermatological Surgical History: Reports: None - SUBSTANCE USE Tobacco Use Status *Q: Never Tobacco User Second Hand Smoke Exposure: No Recreational Drug Use History: No - HOME MEDS Home Medications: Home Meds Pnv No.95/Ferrous Fum/Folic AC [ Vitamin Tablet] 1 tab PO DAILY 10/05/21 [History] Sertraline [Zoloft] 1 tab PO DAILY 10/05/21 [History] - CURRENT (IN HOUSE) MEDS Current Meds: Current Medications Diphenhydramine HCl (Diphenhydramine 50 Mg/Ml Sdv) 25 mg IVPUSH Q6H PRN PRN Reason: pruritis Ephedrine Sulfate (Ephedrine 50 Mg/Ml Sdv) 5 mg IVPUSH ASDIRECTED PRN PRN Reason: Hypotension Fentanyl (Fentanyl 100 Mcg/2 Ml Sdv) 100 mcg EPIDUR Q3H PRN PRN Reason: Pain Last Admin: 10/05/21 08:26 Dose: 100 mcg Documented by: Fentanyl/Bupivacaine HCl (Bupivacaine/Fentanyl/Ns 100 Ml Bag) 100 ml EPIDUR ASDIRECTED PRN PRN Reason: Pain Last Admin: 10/05/21 08:26 Dose: 100 ml Documented by: Ampicillin Sodium 1 gm/ Sodium (Chloride) 100 mls @ 200 mls/hr IV Q4H PRISCILLA Last Admin: 10/05/21 07:18 Dose: 200 mls/hr Documented by: Oxytocin/Lactated Ringer's (Pitocin In Lr 10 Units/1,000 Ml) 10 unit in 1,000 mls @ 12 mls/hr IV TITRATE PRISCILLA; Protocol Oxytocin/Lactated Ringer's (Pitocin In Lr 10 Units/1,000 Ml) 10 unit in 1,000 mls @ 500 mls/hr IV .CONTINUOUS PRISCILLA Lactated Ringer's (Ringers, Lactated) 1,000 mls @ 100 mls/hr IV ASDIRECTED PRISCILLA Last Admin: 10/05/21 07:17 Dose: 100 mls/hr Documented by: Nalbuphine HCl (Nalbuphine 10 Mg/1 Ml Vial) 10 mg IVPUSH Q2H PRN PRN Reason: Pain Ondansetron HCl (Ondansetron 4 Mg/2 Ml Sdv) 4 mg IVPUSH Q4H PRN PRN Reason: Nausea/Vomiting Sodium Chloride (Sodium Chloride 0.9% 10 Ml Syringe) 10 ml FLUSH 0900,2100 [facility] Discontinued Medications Ampicillin Sodium 2 gm/ Sodium (Chloride) 100 mls @ 200 mls/hr IV ONETIME ONE Stop: 10/05/21 04:29 Last Admin: 10/05/21 03:31 Dose: 200 mls/hr Documented by: Lidocaine HCl (Lidocaine 1% 50 Ml Mdv) 50 ml INJECT ONETIME ONE Stop: 10/05/21 02:36
[2021-10-05] MEDS: Calcium Carbonate 500 MG Tab.Chew PO PRN ×2 (11:12→13:08)
[2021-10-05] MEDS ORDERED: Lidocaine 1% 50 ML MDV ONE (14:47)
[2021-10-05] MEDS ORDERED: Lidocaine 1.5% with EPINEPHrine 1:200,000 5 ML Amp ONE (15:00)
[2021-10-05] MEDS ORDERED: Ibuprofen 600 MG Tab PO PRN (16:04)
[2021-10-05] MEDS ORDERED: Acetaminophen 325 MG Tab PO PRN (16:22)
[2021-10-05] MEDS ORDERED: Benzocaine/Menthol 20%-0.5% Spray 78 GM Cannister TOP PRN (16:22)
[2021-10-05] MEDS ORDERED: Witch Hazel Medicated Pads 40/Jar TOP PRN (16:22)
--- NOTE | 2021-10-05 16:28 | PCM.SN.2 ---
- Free Text/Narrative Note: Delivery note: Stage I: Brandi is a 26-year-old 2 para 0-1-0-1 female who is presently at 40-0/7 weeks gestational age with an KASSIE of 10/05/2021 who is admitted for induction of labor. She had a history of previous section done for breech presentation . She desired trial of labor after section for an attempt at vaginal after section. Preparatory accommodations included labs, signing of consent for and for repeat , continuous maternal monitoring, IV access, informing surgery and anesthesia that candidate was in-house. Upon admission patient was noted to be safia. These contractions progressed into a regular pattern every 3 to 4 minutes. She was started on ampicillin per protocol for group B strep prophylaxis. The patient made progress up to 4 cm during the first 3 to 4 hours she is in L&D. Pitocin was never started. At 4 cm patient underwent AROM with resultant clear amniotic fluid. This enhanced labor. She progressed steadily to complete cervical dilation by approximately 1200 hrs. She had an epidural placed for labor analgesia with good results. heart tones were reassuring generally to the end of her labor. At the end of her labor she began having some variable decelerations which were sometimes prolonged in the high 70s to 90s range. Patient also began reporting some discomfort in the area of her old scar. Because of this is felt that facilitation of delivery was important. Patient was advised as to continue natural pushing, section option and attempt at backup extraction delivery. Vacuum extraction delivery was then undertaken. Stage II: Brandi delivered a viable, jolly, female named Nilson Barrera at 1441 hrs. via vacuum extraction delivery. She delivered the baby at the end of 1 contraction. There were no pop offs. Midline episiotomy was made but no episiotomy extensions occurred. Epidural was used for episiotomy analgesia/anesthesia. Baby delivered in a direct occiput posterior position. Shoulders delivered without concern and baby was placed on mom's abdomen. Nose and mouth were bulb suctioned and he was dried with warm blanket. Pitocin was increased to 500 cc an hour to facilitate increase in uterine tone and decrease likelihood of bleeding. Port was allowed to pulsate for approximately 2 minutes and was clamped x2 and cut by the baby's father Jarod. The baby weighed 3690 g (8 pounds 2.2 ounces). Length was 20.5 inches. scores were 8 and 9. Episiotomy was repaired with 3-0 Monocryl in a routine fashion. 10 cc of lidocaine 1% was used for episiotomy repair anesthesia. Patient tolerated this reasonably well. Cord blood was obtained. Stage III: The placenta delivered in a Kohli presentation. It appeared intact and complete and was discarded per patient desire. Estimated blood loss was 500 cc. Umbilical cord had 3 vessels. Patient plans to breast-feed. Condition: Good.
[2021-10-05] MEDS: Ibuprofen 600 MG Tab PO PRN ×2 (16:47→21:07)
[2021-10-05] MEDS: Docusate Sodium 100 MG Cap PO PRN (21:10)
[2021-10-05 23:30] VITALS: PULSE 76
[2021-10-06] MEDS: Ibuprofen 600 MG Tab PO PRN (04:04)
--- NOTE | 2021-10-06 06:46 | PCM.SN.2 ---
- Free Text/Narrative Note: note: Patient is doing well in the period. Minimal lochia, voiding well, ambulated without problems. Nursing without concerns. Patient is afebrile, vital signs are stable Abdomen is flat, soft, uterus is below the umbilicus and is firm and nontender. Legs are nontender. Assessment: recovery going well. Plan: Routine care. Patient be discharged home within the next 24-48 hours.
--- NOTE | 2021-10-06 08:09 | PCM48HPAN ---
Post Anesthesia Note - EVALUATION WITHIN 48HRS OF ANESTHETIC Vital Signs in Normal Range: Yes Patient Participated in Evaluation: Yes Respiratory Function Stable: Yes Airway Patent: Yes Cardiovascular Function Stable: Yes Hydration Status Stable: Yes Pain Control Satisfactory: Yes Nausea and Vomiting Control Satisfactory: Yes Mental Status Recovered: Yes Vital Signs: Last Vital Signs Temp 36.2 C 10/05/21 20:46 Pulse 76 10/05/21 20:46 Resp 14 10/05/21 20:46 BP 114/58 L 10/05/21 20:46 Pulse Ox 97 10/05/21 20:46
[2021-10-06 08:37] VITALS: BP 126/87
[2021-10-06] MEDS: Docusate Sodium 100 MG Cap PO PRN (08:48)
[2021-10-06] MEDS ORDERED: Sertraline 50 MG Tab PO SCH (09:00)
[2021-10-06] MEDS ORDERED: Prenatal Multivitamin with Calcium/Folic Acid/Iron Tab PO SCH (09:00)
--- NOTE | 2021-10-07 10:15 | PCM.DCSUM1 ---
Discharge Summary - Hospital Course Free Text/Narrative:: Stage I: Brandi is a 26-year-old 2 para 0-1-0-1 female who is presently at 40-0/7 weeks gestational age with an KASSIE of 10/[birth year]/2021 who is admitted for induction of labor. She had a history of previous section done for breech presentation . She desired trial of labor after section for an attempt at vaginal after section. Preparatory accommodations included labs, signing of consent for and for repeat , continuous maternal monitoring, IV access, informing surgery and anesthesia that candidate was in-house. Upon admission patient was noted to be safia. These contractions progressed into a regular pattern every 3 to 4 minutes. She was started on ampicillin per protocol for group B strep prophylaxis. The patient made progress up to 4 cm during the first 3 to 4 hours she is in L&D. Pitocin was never started. At 4 cm patient underwent AROM with resultant clear amniotic fluid. This enhanced labor. She progressed steadily to complete cervical dilation by approximately 1200 hrs. She had an epidural placed for labor analgesia with good results. heart tones were reassuring generally to the end of her labor. At the end of her labor she began having some variable decelerations which were sometimes prolonged in the high 70s to 90s range. Patient also began reporting some discomfort in the area of her old scar. Because of this is felt that facilitation of delivery was important. Patient was advised as to continue natural pushing, section option and attempt at backup extraction delivery. Vacuum extraction delivery was then undertaken. Stage II: Brandi delivered a viable, jolly, female infant named Nilson Barrera at 1441 hrs. via vacuum extraction delivery. She delivered the baby at the end of 1 contraction. There were no pop offs. Midline episiotomy was made but no episiotomy extensions occurred. Epidural was used for episiotomy analgesia/anesthesia. Baby delivered in a direct occiput posterior position. Juan tilley delivered without concern and baby was placed on mom's abdomen. Nose and mouth were bulb suctioned and he was dried with warm blanket. Pitocin was increased to 500 cc an hour to facilitate increase in uterine tone and decrease likelihood of bleeding. Port was allowed to pulsate for approximately 2 minutes and was clamped x2 and cut by the baby's father Jarod. The baby weighed 3690 g (8 pounds 2.2 ounces). Length was 20.5 inches. scores were 8 and 9. Episiotomy was repaired with 3-0 Monocryl in a routine fashion. 10 cc of lidocaine 1% was used for episiotomy repair anesthesia. Patient tolerated this reasonably well. Cord blood was obtained. Stage III: The placenta delivered in a Kohli presentation. It appeared intact and complete and was discarded per patient desire. Estimated blood loss was 500 cc. Umbilical cord had 3 vessels. Patient plans to breast-feed. patient is done well. She is nursing without problems, ambulating well, voiding without concerns and has minimal lochia. Vital signs been stable patient's been afebrile . She is desiring discharge home. Condition: Good. Diagnosis: Stroke: No - Discharge Data Discharge Date: 10/06/21 Discharge Disposition: Home, Self-Care 01 Condition: Good - Referral to Home Health Primary Care Physician: John Paul Guerin MD - Discharge Diagnosis/Problem(s) (1) 40 weeks gestation of SNOMED Code(s): 70356361 ICD Code: Z3A.40 - 40 WEEKS GESTATION OF Status: Acute (2) Mother positive for group B Streptococcus colonization SNOMED Code(s): 99585929839768 ICD Code: P00.82 - NB AFF BY (POSITIVE) MATERN GROUP B STREP (GBS) COLONIZATION Status: Acute (3) Previous section SNOMED Code(s): 249955382 ICD Code: Z98.891 - HISTORY OF UTERINE SCAR FROM PREVIOUS SURGERY Status: Acute (4) Previous delivery in third trimester, antepartum SNOMED Code(s): 943276128, 197501836 ICD Code: O09.213 - SUPRVSN OF PREG W HISTORY OF PRE-TERM LABOR, THIRD TRIMESTER Status: Acute - Patient Instructions Diet: Usual Diet as Tolerated (Nursing diet with increased calories and calcium is recommended) Activity: As Tolerated (No intercourse or tampons until bleeding resolves) Driving: May Drive Today Showering/Bathing: May Shower Notify Provider of: Fever, Increased Pain, Swelling and Redness, Drainage - Discharge Plan Home Medications: Home Meds Pnv No.95/Ferrous Fum/Folic AC [ Vitamin Tablet] 1 tab PO DAILY 10/05/21 [History] Sertraline [Zoloft] 1 tab PO DAILY 10/05/21 [History] Acetaminophen [Tylenol] 650 mg PO Q4H PRN tablet 10/06/21 [Rx] Benzocaine/Menthol [Dermoplast Pain Relief 20%-0.5% [place]] 1 spray TOP ASDI RECTED PRN canister 10/06/21 [Rx] Docusate Sodium [Colace] 100 mg PO BID PRN cap 10/06/21 [Rx] Ibuprofen [Motrin] 600 mg PO Q4H PRN tablet 10/06/21 [Rx] Vit with Ca/FA/Iron [ Plus Iron] 1 each PO DAILY tablet 10/06/21 [Rx] darian Arshad [Tucks] 1 pad TOP ASDIRECTED PRN pad 10/06/21 [Rx] Patient Handouts: Care After Vaginal Delivery Referrals: John Paul Guerin MD [Primary Care Provider] - (Return to clinic[facility]. [facility]in2 to 4 weeks.) - Discharge Summary/Plan Comment DC Time >30 min.: No Total # of Minutes for Discharge Time: 10 Discharge Summary/Plan Comment: Discharge instructions: 1. Discharge home 2. Diet, activity and follow-up discussed with patient. Recommend nursing diet with increased calories and calcium. 3. Precautions given concern increased pain, bleeding, temperature, signs/symptoms of DVT/PE. 4. Medications per home medication was printed, discussed with and given to the patient. 5. Return to clinic-Dr. Guerin-[facility] in 24 weeks. Diagnosis: Term -delivered Condition: Good - Patient Data Vitals - Most Recent: Last Vital Signs Temp 36.5 C 10/06/21 08:13 Pulse 76 10/06/21 08:13 Resp 14 10/06/21 08:13 BP 126/87 10/06/21 08:13 Pulse Ox 98 10/06/21 08:13 Weight - Most Recent: 83.733 kg Med Orders - Current: Current Medications Discontinued Medications Acetaminophen (Acetaminophen 325 Mg Tab) 650 mg PO Q4H PRN PRN Reason: mild pain or fever Last Admin: 10/06/21 00:56 Dose: 650 mg Documented by: Benzocaine/Menthol (Benzocaine/Menthol 20%-0.5% [place] 78 Gm Cannister) 0 gm TOP ASDIRECTED PRN PRN Reason: Perineal Comfort Measure Last Admin: 10/05/21 21:08 Dose: 1 canister Documented by: Calcium Carbonate/Glycine (Calcium Carbonate 500 Mg Tab.Chew) 1,000 mg PO Q2H PRN PRN Reason: Indigestion Last Admin: 10/05/21 13:08 Dose: 1,000 mg Documented by: Diphenhydramine HCl (Diphenhydramine 50 Mg/Ml Sdv) 25 mg IVPUSH Q6H PRN PRN Reason: pruritis Docusate Sodium (Docusate Sodium 100 Mg Cap) 100 mg PO BID PRN PRN Reason: Constipation Last Admin: 10/06/21 08:48 Dose: 100 mg Documented by: Ephedrine Sulfate (Ephedrine 50 Mg/Ml Sdv) 5 mg IVPUSH ASDIRECTED PRN PRN Reason: Hypotension Fentanyl (Fentanyl 100 Mcg/2 Ml Sdv) 100 mcg EPIDUR Q3H PRN PRN Reason: Pain Last Admin: 10/05/21 08:26 Dose: 100 mcg Documented by: Fentanyl/Bupivacaine HCl (Bupivacaine/Fentanyl/Ns 100 Ml Bag) 100 ml EPIDUR ASDIRECTED PRN PRN Reason: Pain Last Admin: 10/05/21 08:26 Dose: 100 ml Documented by: Ampicillin Sodium 2 gm/ Sodium (Chloride) 100 mls @ 200 mls/hr IV ONETIME ONE Stop: 10/05/21 04:29 Last Admin: 10/05/21 03:31 Dose: 200 mls/hr Documented by: Ampicillin Sodium 1 gm/ Sodium (Chloride) 100 mls @ 200 mls/hr IV Q4H PRISCILLA Last Admin: 10/05/21 16:03 Dose: Not Given Documented by: Oxytocin/Lactated Ringer's (Pitocin In Lr 10 Units/1,000 Ml) 10 unit in 1,000 mls @ 12 mls/hr IV TITRATE PRISCILLA; Protocol Last Titration: 10/05/21 14:43 Dose: 83.33 munits/min, 499.98 mls/hr Documented by: Oxytocin/Lactated Ringer's (Pitocin In Lr 10 Units/1,000 Ml) 10 unit in 1,000 mls @ 500 mls/hr IV .CONTINUOUS PRISCILLA Lactated Ringer's (Ringers, Lactated) 1,000 mls @ 100 mls/hr IV ASDIRECTED [facility] Last Admin: 10/05/21 11:06 Dose: 100 mls/hr Documented by: Ibuprofen (Ibuprofen 600 Mg Tab) 600 mg PO Q4H PRN PRN Reason: Pain Ibuprofen (Ibuprofen 600 Mg Tab) 600 mg PO Q4H PRN PRN Reason: Mild pain or fever Last Admin: 10/06/21 04:04 Dose: 600 mg Documented by: Lidocaine HCl (Lidocaine 1% 50 Ml Mdv) 50 ml INJECT ONETIME ONE Stop: 10/05/21 02:36 Last Admin: 10/05/21 16:03 Dose: Not Given Documented by: Lidocaine HCl (Lidocaine 1% 50 Ml Mdv) Confirm Administered Dose 50 ml .ROUTE .STK-MED ONE Stop: 10/05/21 14:48 Last Admin: 10/05/21 14:48 Dose: 50 ml Documented by: Lidocaine/Epinephrine (Lidocaine 1.5% With Epinephrine 1:200,000 5 Ml Amp) 5 ml .ROUTE .STK-MED ONE Stop: 10/05/21 15:01 Nalbuphine HCl (Nalbuphine 10 Mg/1 Ml Vial) 10 mg IVPUSH Q2H PRN PRN Reason: Pain Ondansetron HCl (Ondansetron 4 Mg/2 Ml Sdv) 4 mg IVPUSH Q4H PRN PRN Reason: Nausea/Vomiting Prenat Multivit/Hardy/Iron/Folic Ac ( Multivitamin With Calcium/Folic Acid/Iron Tab) 1 each PO DAILY [facility] Last Admin: 10/06/21 08:48 Dose: 1 each Documented by: Sertraline HCl (Sertraline 50 Mg Tab) 50 mg PO DAILY [facility] Last Admin: 10/06/21 08:48 Dose: 50 mg Documented by: Sodium Chloride (Sodium Chloride 0.9% 10 Ml Syringe) 10 ml FLUSH 0900,2100 [facility] Last Admin: 10/05/21 10:19 Dose: Not Given Documented by: Darian Arshad (Darian Arshad Medicated Pads 40/Jar) 1 pad TOP ASDIRECTED PRN PRN Reason: Perineal Comfort Measure
== END 2021-10-06 16:30 | disposition home or self-care (01) | DRG 560 ==
LOC: JD.OB 02:49 → OBSVTOIN 14:41 → JD.OB 14:42
PROVIDERS: ADMIT Obstetrics & Gynecology; ATTEND Obstetrics & Gynecology
PROC: 10D07Z6 Extraction of Products of Conception, Vacuum, Via Natural or Artificial Opening (ICD-10-PCS; principal; 2021-10-05)
PROC: 10907ZC Drainage of Amniotic Fluid, Therapeutic from Products of Conception, Via Natural or Artificial Opening (ICD-10-PCS; 2021-10-05)
PROC: 0W8NXZZ Division of Female Perineum, External Approach (ICD-10-PCS; 2021-10-05)
PROC: 3E0R3BZ Introduction of Anesthetic Agent into Spinal Canal, Percutaneous Approach (ICD-10-PCS; 2021-10-05)
PROC: 00HU33Z Insertion of Infusion Device into Spinal Canal, Percutaneous Approach (ICD-10-PCS; 2021-10-05)
DX: O99.824 Streptococcus B carrier state complicating childbirth (principal); Z3A.40 40 weeks gestation of pregnancy; Z37.0 Single live birth; O34.211 Maternal care for low transverse scar from previous cesarean delivery; Z20.822 Contact with and (suspected) exposure to COVID-19
CPT/HCPCS: 01967; 36415; 51702; 59025; 59409; 85025; 86592; 86850; 86900; 86901; A9270-GY; J0290; J2001; J2590; J3010; J7120; U0002